=== PATIENT | male | born 1955 | race African-American/Black ===

== ENCOUNTER 2018-12-19 10:31 | Inpatient (IN) | payer OTHER ==
--- NOTE | 2018-12-19 11:45 | PDOC ---
History of Present Illness <Wendy Garcia - Last Filed: 12/19/18 14:17> - General History Source: Patient Exam Limitations: No Limitations - History of Present Illness Initial Comments: 12/19/18 11:40 63-year-old male with history of diabetes on metformin presents with 3 weeks of intermittent headaches and 4 days of imbalance with discoordination of the left hand. Patient without history of recurring headaches, around 3 weeks ago started noticing left temporal headache varying in severity, sometimes sharp and radiating about the occiput. Slight nausea when headache is most prominent, particularly in the morning. The headache is slightly exacerbated by positional changes such as bending down. No actual vomiting, no acute vision changes though he was diagnosed with glaucoma by an service department manager in the past, no speech issues. In the setting, beginning about 4-5 days ago the patient began noting some imbalance with walking and discoordination of his left hand described as missing objects and dropping them. He is right-hand dominant, no issues of the right side or the left leg. No recent head injury, no smoking/ drinking/abuse, no history of cardiac/stroke/cancer issues. Presents today secondary to persistent symptoms. <Owen Mancia - Last Filed: 12/20/18 15:38> - General Chief Complaint: CVA/TIA Stated Complaint: HEADACHE, UNBALANCE Time Seen by Provider: 12/19/18 11:20 NIH Stroke Scale - Last Known Well Date/Time & Onset Date Last Known Well: 12/15/18 (unclear time) - Initial Evaluation Level of consciousness: Alert Ask patient the month and their age: Answers both correctly Ask patient to open & close eyes; make fist and let go: Obeys both correctly Best gaze (horizontal eye movement): Normal Visual field testing: No visual field loss Facial paresis (Show teeth/raise eyebrows/close eyes tight): Normal symmetrical movement Motor Function: Left Arm: Drift Motor Function: Right Arm: Normal (extends arm 90 (or 45) degrees for 10 seconds without drift Motor Function: Left Leg: Normal (extends leg 30 degrees for 5 seconds without drift) Motor Function: Right Leg: Normal (extends leg 30 degrees for 5 seconds without drift) Limb Ataxia: Present in one limb Sensory(Use pinprick test arms,legs,trunk,face/side to side): Normal Best language (Describe picture, name items, read sentences): No Aphasia Dysarthria (read several words): Normal articulation Extinction and Inattention: No abnormality - Total Score NIH Stroke Scale Score: 2 <DylanKenji coronadofaele - Last Filed: 12/20/18 15:38> Past History <Kjpedro luisWendy - Last Filed: 12/19/18 14:17> - Past Medical History COPD: No Diabetes: Yes GI Disorders: Yes (acid reflux) - Suicide/Smoking/Psychosocial Hx Smoking Status: No Smoking History: Never smoked Have you smoked in the past 12 months: No Number of Cigarettes Smoked Daily: 0 Hx Alcohol Use: No Drug/Substance Use Hx: No <DylanivonneOwen - Last Filed: 12/20/18 15:38> - Past Medical History Allergies/Adverse Reactions: Allergies Allergy/AdvReac Type Severity Reaction Status Date / Time naproxen Allergy Verified 12/19/18 10:34 Home Medications: Ambulatory Orders Bimatoprost [Lumigan] 1 drop OU DAILY 12/19/18 Metformin HCl [Glucophage] 1,000 mg PO BID 12/19/18 Review of Systems - Review of Systems Constitutional: No: Chills, Fever, Night Sweats, Unintentional Wgt. Loss HEENTM: No: Recent change in vision, Throat Pain Respiratory: No: Cough, Shortness of Breath Cardiac (ROS): No: Chest Pain, Edema, Palpitations, Syncope ABD/GI: Yes: Nausea. No: Diarrhea, Vomiting Musculoskeletal: No: Joint Pain, Muscle Pain Neurological: Yes: Headache, Weakness. No: Paresthesia All Other Systems: Reviewed and Negative <Owen Mancia - Last Filed: 12/20/18 15:38> *Physical Exam - Vital Signs Last Vital Signs Temp Pulse Resp BP Pulse Ox 99.4 F 84 18 137/65 99 12/19/18 10:34 12/19/18 10:34 12/19/18 10:34 12/19/18 10:34 12/19/18 10:34 <Wendy Garcia - Last Filed: 12/19/18 14:17> - Vital Signs Last Vital Signs Temp Pulse Resp BP Pulse Ox 99.4 F 84 18 137/65 99 12/19/18 10:34 12/19/18 10:34 12/19/18 10:34 12/19/18 10:34 12/19/18 10:34 - Physical Exam Comments: 12/19/18 11:45 Vital signs within normal limits, temp 99.4. GENERAL: The patient is awake, alert, and fully oriented, in no acute distress. HEAD: Normal with no signs of trauma. EYES: PERRL, EOMI, sclera anicteric, early glaucoma L>R, conjunctiva clear with no pallor. ENT: oropharynx clear without exudates. Moist mucous membranes. NECK: Normal range of motion, supple without lymphadenopathy, JVD, or masses. LUNGS: Breath sounds equal, clear to auscultation bilaterally. No wheeze/ crackles. HEART: Regular rate and rhythm, normal S1 and S2 without murmur or rub. ABDOMEN: Soft/nontender/nondistended. BS wnl. No guarding or rebound. No palpable masses. No hepatosplenomegaly. EXTREMITIES: Normal range of motion, no edema. 2+ distal pulses. No cords, erythema, or tenderness. NEUROLOGICAL: Mental status: The patient is alert and oriented x3. Cranial nerves: Cranial nerves II through XII are intact Motor: Right upper extremity 5/5, LUE without drift but with 4/5 L elbow/hand and slight discoordination on STEPHY and FNF. The lower extremities are 5 over 5 in all muscle groups. No pronator drift. Sensation: Sensation is intact to light touch throughout. Cerebellar: [id number] is abnormal in LUE. Utjh-dyil-qvwv is normal in both lower extremities. Gait: Normal though sense of imbalance with standing. Heel and toe walking are normal. Tandem gait is normal. PSYCH: Normal mood, normal affect. SKIN: Warm, Dry, no rashes or lesions noted. <Owen Mancia - Last Filed: 12/20/18 15:38> Moderate Sedation - Procedure Monitoring Vital Signs: Procedure Monitoring Vital Signs Temperature 99.4 F 12/19/18 10:34 Pulse Rate 84 12/19/18 10:34 Respiratory Rate 18 12/19/18 10:34 Blood Pressure 137/65 12/19/18 10:34 O2 Sat by Pulse Oximetry (%) 99 12/19/18 10:34 <Wendy Garcia - Last Filed: 12/19/18 14:17> - Procedure Monitoring Vital Signs: Procedure Monitoring Vital Signs Temperature 99.4 F 12/19/18 10:34 Pulse Rate 84 12/19/18 10:34 Respiratory Rate 18 12/19/18 10:34 Blood Pressure 137/65 12/19/18 10:34 O2 Sat by Pulse Oximetry (%) 99 12/19/18 10:34 <Owen Mancia - Last Filed: 12/20/18 15:38> Heart Score/ECG Review #1 ECG reviewed & interpreted by me at: 13:25 General ECG Interpretation: Sinus Rhythm, Normal Rate (64), Normal Intervals ( qtc 373), No acute ischemic changes <Owen Mancia - Last Filed: 12/20/18 15:38> ED Treatment Course - LABORATORY CBC & Chemistry Diagram: 12/19/18 13:15 12/19/18 13:15 - ADDITIONAL ORDERS Additional order review: Laboratory Results 12/19/18 13:15 PT with INR 13.20 H INR 1.12 H 12/19/18 13:15 RBC 4.35 MCV 88.3 MCHC 33.9 RDW 12.7 MPV 8.9 Neutrophils % 59.6 D Lymphocytes % 30.8 D Monocytes % 7.3 Eosinophils % 1.0 Basophils % 1.3 <Wendy Garcia - Last Filed: 12/19/18 14:17> - LABORATORY CBC & Chemistry Diagram: 12/20/18 05:30 12/20/18 05:30 - RADIOLOGY Radiology Studies Ordered: Category Date Time Status HEAD CT (STROKE) [CT] Stat CT Scan 12/19/18 11:38 Ordered CHEST PA & LAT [RAD] Stat Radiology 12/19/18 11:38 Ordered <Owen Mancia - Last Filed: 12/20/18 15:38> Medical Decision Making - Medical Decision Making Case discussed with Dr. Stephen Pastrana at 14:16. Case discussed with Dr. Forman at 14:18. <Wendy Garcia - Last Filed: 12/19/18 14:17> - Medical Decision Making 12/19/18 11:51 63-year-old male with history of diabetes presents with 3 weeks of new onset headaches and 4-5 days of left upper extremity weakness and ataxia. Findings on exam localized left upper extremity, otherwise neurovascularly intact. Question CVA/TIA that occurred 4-5 days ago, rule out space-occupying lesion given the new onset headaches. Stroke protocol initiated Will discuss with neurology Will likely need admission 12/19/18 14:20 CT shows right frontal parietal subdural hematoma with 5 mm midline shift, acute on chronic. CBC and coags are within normal limits. Reaffirmed again with patient, no recent trauma and not on any blood thinners. Discussed with Dr. Pastrana of neurosurgery, likely plan for OR later today. Pre-op and T+S done. Accepted for inpt m/s by Dr. Forman <Owen Mancia - Last Filed: 12/20/18 15:38> *DC/Admit/Observation/Transfer - Attestations Scribe Attestion: Documentation prepared by Wendy Garcia, acting as medical center representative for Owen Mancia MD. <Wendy Garcia - Last Filed: 12/19/18 14:17> - Discharge Dispostion Decision to Admit order: Yes <Owen Mancia - Last Filed: 12/20/18 15:38> Diagnosis at time of Disposition: Weakness of left upper extremity, Subdural hematoma - Discharge Dispostion Condition at time of disposition: Fair
[2018-12-19 14:00] LABS: BASO % 1.3 % (0-2.0); HEMATOCRIT 38.4 % (35.4-49); LYMPH % 30.8 % (8-40); MCH 29.9 pg (25.7-33.7); MCHC 33.9 g/dl (32.0-35.9); MEAN CELL VOLUME 88.3 fl (80-96); MEAN PLT VOLUME 8.9 fl (7.5-11.1); MONO % 7.3 % (3.8-10.2); NEUT % 59.6 % (42.8-82.8); PLATELET COUNT 285 K/MM3 (134-434); RBC 4.35 M/mm3 (4.00-5.60); RDW 12.7 % (11.9-15.9); WHITE BLOOD COUNT 6.3 K/mm3 (4.0-10.0)
[2018-12-19 14:14] LABS: INR 1.12 (0.83-1.09); PROTHROMBIN TIME (PATIENT) 13.2 SEC (9.7-13.0)
[2018-12-19 14:25] LABS: ALBUMIN 3.5 g/dl (3.4-5.0); ALK PHOS 128 U/L (45-117); ANION GAP 5 MMOL/L (8-16); BILIRUBIN,TOTAL 0.9 mg/dL (0.2-1); BLOOD UREA NITROGEN 11 mg/dL (7-18); CALCIUM 9.2 mg/dL (8.5-10.1); CHLORIDE 103 mmol/L (98-107); CHOLESTEROL 199 mg/dL (50-200); CO2 33 mmol/L (21-32); CREATININE 1.1 mg/dL (0.55-1.3); GLUCOSE,RANDOM 242 mg/dL (74-106); HDL CHOLESTEROL 82 mg/dL (40-60); SGOT/AST 23 U/L (15-37); SGPT/ALT 36 U/L (13-61); SODIUM 141 mmol/L (136-145); TOT PROT 6.8 g/dl (6.4-8.2); TRIGLYCERIDES 92 mg/dL (0-150)
--- NOTE | 2018-12-19 14:28 | PN ---
Progress Note (short form) - Note Progress Note: NEUROSURGERY CONSULT DICTATED Care d/w Dr of ED Family at bedside R temporo-occipital H/A and L hemiparesis of at least 4 days duration No recent fall/trauma Not on AC PE: AF, VSS HEENT- NC/AT; Neck- supple; Cor- RR; Lungs- CTA B; Abd- benign; Ext- no sign of DVT A/A/OX3; speech fluent CN- intact; Motor- L hand 4-, L UE drift; Sensation- intact LT; DTR- 1+ Labs reviewed and acceptable- platelet 285k, INR 1.[address]- moderate to large 2+ cm R fronto-parietal > temporal subacute/chronic SDH with possible membrane and cortical/ventricular mass effect Symptomatic R SDH- for craniotomy for drainage and subdural drain placement Risks: bleeding, infection, bleed, re-hemorrhage, stroke, sz, coma, , DVT/ PE, WA, pneumonia Operative and postop care discussed Adán for sz prophylaxis NPO D/w OR team T & X 2 PRBC
[2018-12-19] MEDS ORDERED: MIDAZOLAM HCL 2 MG/2 ML SINGLE DOSE VIAL ONE (15:05)
[2018-12-19] MEDS ORDERED: ROCURONIUM BROMIDE 50 MG/5 ML VIAL ONE ×3 (15:06→16:29)
[2018-12-19] MEDS ORDERED: LIDOCAINE HCL/PF 2% SDV 5ML VIAL ONE (15:06)
[2018-12-19] MEDS ORDERED: THROMBIN (BOVINE) 5,000 UNIT VIAL TP ONE (15:34)
[2018-12-19] MEDS ORDERED: SUCCINYLCHOLINE CHLORIDE 200 MG/10 ML VIAL ONE (16:23)
[2018-12-19] MEDS ORDERED: PROPOFOL 20 ML ONE ×5 (16:23→17:21)
[2018-12-19] MEDS ORDERED: fentaNYL CITRATE 250 MCG/5 ML VIAL ONE (16:29)
[2018-12-19] MEDS ORDERED: PHENYLEPHRINE HCL 10 MG/1 ML SINGLE DOSE VIAL ONE (16:31)
--- NOTE | 2018-12-19 16:39 | HP ---
Admitting History and Physical - Primary Care Physician PCP: Janneth Forman - Admission History of Present Illness: 63-year-old male with history of diabetes on metformin presents with 3 weeks of intermittent headaches and 4 days of imbalance with discoordination of the left hand. Patient without history of recurring headaches, around 3 weeks ago started noticing left temporal headache varying in severity, sometimes sharp and radiating about the occiput. Slight nausea when headache is most prominent, particularly in the morning. The headache is slightly exacerbated by positional changes such as bending down. 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 In the setting, beginning about 4-5 days ago the patient began noting some imbalance with walking and discoordination of his left hand described as missing objects and dropping them. He is right-hand dominant, no issues of the right side or the left leg. No recent head injury, no smoking/ drinking/abuse, no history of cardiac/stroke/cancer issues. Presents today secondary to persistent symptoms. - Past Medical History Endocrine: Yes: Diabetes Mellitus - Smoking History Smoking history: Never smoked Have you smoked in the past 12 months: No Aproximately how many cigarettes per day: 0 - Alcohol/Substance Use Hx Alcohol Use: No Home Medications - Allergies Allergies/Adverse Reactions: Allergies Allergy/AdvReac Type Severity Reaction Status Date / Time naproxen Allergy Verified 12/19/18 10:34 - Home Medications Home Medications: Ambulatory Orders Bimatoprost [Lumigan] 1 drop OU DAILY 12/19/18 Metformin HCl [Glucophage] 1,000 mg PO BID 12/19/18 Physical Examination Vital Signs: Vital Signs Temperature 98.0 F 12/19/18 16:03 Pulse Rate 78 12/19/18 16:03 Respiratory Rate 18 12/19/18 16:03 Blood Pressure 155/86 12/19/18 16:03 O2 Sat by Pulse Oximetry (%) 97 12/19/18 16:03 Constitutional: Yes: Calm HENT: Yes: Atraumatic, Other Neck: Yes: Supple Cardiovascular: Yes: Regular Rate and Rhythm Respiratory: Yes: CTA Bilaterally Gastrointestinal: Yes: Normal Bowel Sounds Extremities: Yes: WNL Edema: No Peripheral Pulses WNL: Yes Neurological: Yes: Other (drowsy...in recovery room) Labs: CBC, BMP 12/19/18 13:15 12/19/18 13:15 Imaging - Results Cat Scan: Report Reviewed Problem List - Problems (1) Subdural hematoma Assessment/Plan: patient for OR with dr Pastrana for evacuation of hematoma Code(s): S06.5X9A - TRAUM SUBDR HEM W LOC OF UNSP DURATION, INIT (2) Weakness of left upper extremity Assessment/Plan: left arm weak... Code(s): R29.898 - OTH SYMPTOMS AND SIGNS INVOLVING THE MUSCULOSKELETAL SYSTEM Assessment/Plan Laboratory Tests 12/19/18 12/19/18 12/19/18 13:15 13:15 13:15 WBC 6.3 RBC 4.35 Hgb 13.0 Hct 38.4 MCV 88.3 MCH 29.9 MCHC 33.9 RDW 12.7 Plt Count 285 D MPV 8.9 Absolute Neuts (auto) 3.7 Neutrophils % 59.6 D Lymphocytes % 30.8 D Monocytes % 7.3 Eosinophils % 1.0 Basophils % 1.3 Nucleated RBC % 0 PT with INR 13.20 H INR 1.12 H Sodium 141 Potassium 4.0 Chloride 103 Carbon Dioxide 33 H Anion Gap 5 L BUN 11 Creatinine 1.1 Creat Clearance w eGFR > 60 Random Glucose 242 H Calcium 9.2 Total Bilirubin 0.9 AST 23 ALT 36 Alkaline Phosphatase 128 H Creatine Kinase 61 Troponin I < 0.02 Total Protein 6.8 Albumin 3.5 Triglycerides 92 Cholesterol 199 Total LDL Cholesterol 94 HDL Cholesterol 82 H Blood Type Antibody Screen 12/19/18 13:15 WBC RBC Hgb Hct MCV MCH MCHC RDW Plt Count MPV Absolute Neuts (auto) Neutrophils % Lymphocytes % Monocytes % Eosinophils % Basophils % Nucleated RBC % PT with INR INR Sodium Potassium Chloride Carbon Dioxide Anion Gap BUN Creatinine Creat Clearance w eGFR Random Glucose Calcium Total Bilirubin AST ALT Alkaline Phosphatase Creatine Kinase Troponin I Total Protein Albumin Triglycerides Cholesterol Total LDL Cholesterol HDL Cholesterol Blood Type A POSITIVE Antibody Screen Negative Active Medications Generic Name Dose Route Start Last Admin Trade Name Freq PRN Reason Stop Dose Admin Acetaminophen/Codeine Phosphate 1 tab 12/19/18 19:01 12/20/18 01:35 Tylenol # 3 - PO 1 tab Q4H PRN Administration PAIN LEVEL 4 - 6 Docusate Sodium 100 mg 12/19/18 22:00 12/20/18 15:00 Colace - PO 100 mg TID DELISA Administration Fentanyl 50 mcg 12/19/18 19:47 Sublimaze Injection - IVPUSH Q5M PRN PAIN-PACU ORDER X 4 DOSES ONLY Cefazolin Sodium 1 gm in 50 mls @ 100 mls/hr 12/19/18 21:00 12/20/18 16:00 Ancef 1 Gm Premixed Ivpb - IVPB 12/20/18 20:59 100 mls/hr Q6H-IV DELISA Administration Insulin Aspart 1 vial 12/19/18 22:00 12/20/18 17:46 Novolog Vial Sliding Scale - SQ 2 units ACHS DELISA Administration Protocol Levetiracetam 500 mg 12/19/18 22:00 12/20/18 09:23 Keppra Injection - IVPB 500 mg BID DELISA Administration Morphine Sulfate 2 mg 12/20/18 01:49 Morphine Sulfate IVPUSH Q3H PRN PAIN LEVEL 7 - 10 Ondansetron HCl 4 mg 12/19/18 19:47 Zofran Injection IVPUSH Q6H PRN NAUSEA AND/OR VOMITING Pantoprazole Sodium 40 mg 12/20/18 10:00 12/20/18 09:23 Protonix Iv IVPUSH 40 mg DAILY DELISA Administration cc time 60 min
[2018-12-19] MEDS ORDERED: SODIUM CHLORIDE 1,000 ML IV SCH (16:45)
[2018-12-19] MEDS ORDERED: ceFAZolin SODIUM 1 GM VIAL IVPB ONE (16:55)
[2018-12-19] MEDS ORDERED: ceFAZolin SODIUM 1 GM VIAL ONE (17:18)
[2018-12-19] MEDS ORDERED: ePHEDrine SULFATE 50 MG/1 ML AMPULE ONE (17:33)
[2018-12-19] MEDS ORDERED: LIDOCAINE 1%/EPI 1:100000 (20 ML MULTI DOSE VIAL) IJ ONE (17:34)
[2018-12-19] MEDS ORDERED: NEOSTIGMINE METHYLSULFATE 0.5 MG/ML - 10 ML MDV ONE (17:47)
[2018-12-19] MEDS ORDERED: DEXAMETHASONE SOD PHOSPHATE 4 MG/1 ML VIAL ONE ×2 (17:47)
[2018-12-19] MEDS ORDERED: GLYCOPYRROLATE 0.2 MG/1 ML VIAL ONE (17:53)
--- NOTE | 2018-12-19 18:32 | CONS ---
DATE OF CONSULTATION: 12/19/2018 REFERRING PHYSICIAN: Owen Mancia M.D. CONSULTING PHYSICIAN: Stephen Dia M.D. CHIEF COMPLAINT: Headache with left hemiparesis. HISTORY OF PRESENT ILLNESS: The patient is a 63-year-old right-handed male with a history of diabetes, oral hypoglycemic, who complains of approximately 4-day history of relatively sudden onset of left-hand weakness and paresthesia. He has difficulty with lifting up his hands and grasping things. He also had been having a headache for several days. He stated that he might have fallen and hit his face last summer. He denies loss of consciousness at the time. There is no associated nausea, vomiting, or seizure activity. There is no diplopia. He has no dizziness. His pain is predominantly on the right side in temporal and occipital region. PAST MEDICAL HISTORY: Significant for noninsulin dependent diabetes. MEDICATION: Oral hypoglycemic. ALLERGIES: none. SOCIAL HISTORY: Does not smoke or drink. 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 FAMILY HISTORY: Noncontributory. REVIEW OF SYSTEMS: Otherwise negative for other major constitutional, head/neck , cardiovascular, pulmonary, gastrointestinal, genitourinary, endocrinologic, neurologic, or psychological problems except for the above. PHYSICAL EXAMINATION: Vital signs: Temperature is 99.4, blood pressure 137/65 with pulse rate 84, O2 saturation is 99% on room air. HEENT: Normocephalic, atraumatic, anicteric. Neck: Supple with no carotid bruit. Coronary: Regular rhythm. Lungs: Clear bilaterally. Abdomen: Benign. Extremities: No signs of DVT. Neurologic: He is awake, alert, oriented x4. He is sitting up in the stretcher. Cranial nerves examination intact 2-12. Motor examination shows 5/5 strength except left hand, which is 4-. Sensory, he had drift of the left upper extremity. Sensory examination is intact to light touch. Deep tendon reflexes are 1+ throughout. There is no pathological long tract sign. Gait is not tested for safety reasons. Cerebellar examination demonstrated intact finger to nose examination. LABORATORY EXAMINATION: White blood cell count 6.3, hemoglobin 13, platelet count 285,000. INR is 1.12. Serum sodium is 141, potassium 4.0, BUN and creatinine are 11 and 1.1, respectively. Glucose is 242. LFTs are normal except for mildly elevated alkaline phosphatase of 128. Albumin is 3.5. CT scan of the head demonstrated a moderate to large sized septated right front parietal compacted subdural hematoma going less so into the superior temporal region. There is also a small amount of acute blood which is approximately 2 cm in thickness. There is compression of cortex and slight midline shift from right to left of around 5 mm. There is also compression of lateral ventricle on the right. There is a question of a linear lucency within the right temporal bone which could have been the prior fracture which is chronic in nature versus a vascular groove. IMPRESSION: 1. Subacute/chronic right frontal parietal subdural hematoma with mass effect. 2. Diabetes. RECOMMENDATION: The patient presents with several day history including headache and left hemiparesis. CT scan demonstrates the corresponding right frontal parietal subdural hematoma with mass effect and shift. Because of the mass effect and neurological symptoms, he is a candidate for a craniotomy for evacuating subdural hematoma. The patient understands indications for procedure, procedure in detail, risks and benefits and alternatives for treatments and cranial condition and wished to proceed with surgery. No guarantee can be given for a favorable outcome, and he understands that. He is at increased risk for infection as well as postoperative seizure. The pros and cons of treatment approach were discussed and patient expressed an understanding. His family was at the bedside in the emergency room. All questions were answered. The operative and postoperative care were described in detail. The patient understands that he has the risk of developing re- hemorrhage, especially if there is presence of subdural membrane. He is to avoid any anticoagulant or antiinflammatory medications for at least 1 week prior to surgery. The surgical consent was obtained in the emergency room for the patient. STEPHEN DIA M.D. [id number] MTDD
[2018-12-19] MEDS ORDERED: levETIRAcetam 500 MG/5 ML INJECTION VIAL IVPB ONE (19:00)
[2018-12-19] MEDS ORDERED: ONDANSETRON 4 MG/2 ML VIAL IVPUSH PRN ×2 (19:01→19:47)
[2018-12-19] MEDS ORDERED: ACETAMINOPHEN WITH CODEINE 300MG/30MG TABLET PO PRN (19:01)
--- NOTE | 2018-12-19 19:01 | OP ---
Operative Note - Note: Operative Date: 12/19/18 Pre-Operative Diagnosis: Large R parietal acute on chronic SDH with mass effect and midline shift Operation: R parietal craniotomy for SDH, drain placement, microdissection Findings: subdural membrane; both acute and chronic blood under pressure Implants: cranial plates x4 with 1.5x5 mm screws x8 Post-Operative Diagnosis: Same as Pre-op Surgeon: Stephen Pastrana Linux Support Engineer: Leonardo Sanchez Anesthesiologist/BUTTER MAKER: Adrianna Saavedra Anesthesia: General Specimens Removed: SDH for path and cytology, culture; subdural membrane Estimated Blood Loss (mls): 100 Drains, Volume Out (mls): 5
[2018-12-19] MEDS ORDERED: MORPHINE SULFATE 2 MG/ML VIAL IVPUSH PRN (19:06)
--- NOTE | 2018-12-19 19:31 | SURG ---
Surgery Health Actuary Note Health Actuary: Leonardo Sanchez PA-C Date of Service: 12/19/18 Diagnosis: Large R parietal acute on chronic SDH with mass effect and midline shift Procedure: Rt parietal craniotomy for SDH, drain placement, microdissection I was present for the entirety of the operative procedure. For further detail, please refer to operative report. Visit type - Case Type Case Type: ED Admission - Emergency Emergency Visit: Yes ED Registration Date: 12/19/18 Care time: The patient presented to the Emergency Department on the above date and was hospitalized for further evaluation of their emergent condition. - New patient This patient is new to me today: Yes Date on this admission: 12/19/18
[2018-12-19] MEDS ORDERED: LACTATED RINGERS SOLUTION 1,000 ML IV SCH (20:00)
[2018-12-19] MEDS: INSULIN SLIDING SCALE (NOVOLOG) 1 VIAL SQ SCH ×2 (20:15→22:14)
[2018-12-19 20:40] LABS: HEMATOCRIT 35.8 % (35.4-49); HEMOGLOBIN 12.2 GM/dL (11.7-16.9); MCH 29.9 pg (25.7-33.7); MEAN PLT VOLUME 9.2 fl (7.5-11.1); PLATELET COUNT 252 K/MM3 (134-434); RBC 4.06 M/mm3 (4.00-5.60); RDW 12.7 % (11.9-15.9); WHITE BLOOD COUNT 7.2 K/mm3 (4.0-10.0)
[2018-12-19 20:51] LABS: ALK PHOS 110 U/L (45-117); ANION GAP 9 MMOL/L (8-16); BILIRUBIN,TOTAL 0.7 mg/dL (0.2-1); BLOOD UREA NITROGEN 9 mg/dL (7-18); CALCIUM 8.3 mg/dL (8.5-10.1); CHLORIDE 107 mmol/L (98-107); CO2 27 mmol/L (21-32); GLUCOSE,RANDOM 204 mg/dL (74-106); POTASSIUM 3.8 mmol/L (3.5-5.1); SGOT/AST 18 U/L (15-37); SGPT/ALT 29 U/L (13-61); SODIUM 143 mmol/L (136-145)
[2018-12-19] MEDS: D5-NS + 20 MEQ KCL - 20 MEQ/1,000 ML INFUS.BAG IV SCH ×2 (21:04→21:18)
--- NOTE | 2018-12-19 21:11 | CONSULT ---
Consult Consult Specialty:: ICU Reason for Consultation:: hemorragic stroke, ICU level of care - History of Present Illness Chief Complaint: headache History of Present Illness: 63 yr old man with DM presented with progressiving headache for past 3 weeks with dysmetria of the left hand and gait imbalance. headache was worse with movement and leaning forward. He was found to have right frontal parietal subdural hematoma with 5 mm midline shift, acute on chronic. s/p microdissection , right parietal cranietomy for SDH with drain placement, POD#0. 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 Gastrointestinal: Yes: GERD Rheumatology: Yes: Gout Endocrine: Yes: Diabetes Mellitus - Alcohol/Substance Use Hx Alcohol Use: No - Smoking History Smoking history: Never smoked Have you smoked in the past 12 months: No Aproximately how many cigarettes per day: 0 Home Medications - Allergies Allergies/Adverse Reactions: Allergies Allergy/AdvReac Type Severity Reaction Status Date / Time naproxen Allergy Verified 12/19/18 10:34 - Home Medications Home Medications: Ambulatory Orders Bimatoprost [Lumigan] 1 drop OU DAILY 12/19/18 Metformin HCl [Glucophage] 1,000 mg PO BID 12/19/18 Home Medications (free text): confirmed with [facility]: lumigan 0.1% b/l 1 drop at HS , metoformin 1G bid, lotamax gel eye gel b/l QID(however lotamax has not been filled recently) Review of Systems - Review of Systems Constitutional: reports: No Symptoms. denies: Fever, Lethargy, Loss of Appetite Eyes: reports: No Symptoms HENT: denies: Difficult Swallowing Neck: reports: No Symptoms Cardiovascular: reports: No Symptoms Respiratory: reports: No Symptoms Gastrointestinal: reports: No Symptoms Genitourinary: reports: No Symptoms Musculoskeletal: reports: No Symptoms Integumentary: reports: No Symptoms Neurological: reports: Headache, Unsteady Gait Endocrine: reports: No Symptoms Hematology/Lymphatic: reports: No Symptoms Psychiatric: reports: No Symptoms Physical Exam Vital Signs: Vital Signs Temperature 98.0 F 12/19/18 16:03 Pulse Rate 78 12/19/18 16:03 Respiratory Rate 18 12/19/18 16:03 Blood Pressure 155/86 12/19/18 16:03 O2 Sat by Pulse Oximetry (%) 97 12/19/18 16:03 Constitutional: Yes: No Distress, Calm Eyes: Yes: Conjunctiva Clear, EOM Intact, PERRL HENT: Yes: Atraumatic, Normocephalic. No: Pharyngeal Erythema, Thrush, Tonsillar Exudate Neck: Yes: Supple, Trachea Midline. No: Lymphadenopathy, Thyromegaly Cardiovascular: Yes: Regular Rate and Rhythm, S1, S2. No: Murmur Respiratory: Yes: Regular, CTA Bilaterally (anterior auscultation) Gastrointestinal: Yes: Normal Bowel Sounds, Soft. No: Distention Extremities: Yes: WNL Edema: No Peripheral Pulses WNL: Yes Integumentary: Yes: WNL Wound/Incision: Yes: Clean/Dry (head dressing CDI, with drain in place with serosangunious fluid) Neurological: Yes: Alert, Oriented, Cran Nerves II-XII Intact, Other (bicep and knee reflex intact). No: Lethargy, Loss of Sensation, Numbness, Tingling, Tremors ...Motor Strength: WNL (5/5 handgrip, shoulder shrug, extension and flexion biceps, tricpes, hip, knee, ankle) Psychiatric: Yes: Alert, Oriented (to person, place, month, day, date, year, president, -3 serial substraction from 100 upto 91, 1/3 short term memory recall in 5mins) Labs: CBC, BMP 12/19/18 19:40 12/19/18 19:40 Assessment/Plan 63 yr old man with DM, presented with SDH with midline shift s/p cranietomy. - pt was unable to recall his home medications; called the pharmacy to confirm, list updated in EMR Neurological - SDH [address] ok for systolic BP to be upto 160's, discussed with Dr. Pastrana neuro checks Q1h stroke order set initiated, HOB 30deg, toby scale at DC, PT eval, speech and swallow eval keppra for seizure prophylaxis Cardiovascular no BP meds, address if systolic >160 Infectious disease - cultures sent from OR Endocrine - DM - NPO, BGM and NISS ACHS - home metformin as inpt, can reinitiate at DC Fluids, electrolytes, nutrition - D5 with KCL @80cc/hr - NPO until speech and swallow, pt did well with bedside evaluation Prophylaxis - SCD's for VTE, no medical AC due to hemorrhage - protonix and senna for GI prophylaxis - anti-emetics for nausea - pain control
[2018-12-19] MEDS: DOCUSATE SODIUM 100 MG CAPSULE (FP) PO SCH (21:24)
[2018-12-19] MEDS: levETIRAcetam 500 MG/5 ML INJECTION VIAL IVPB SCH (21:54)
[2018-12-19] MEDS: CEFAZOLIN 1 GM/D5W 1 GM/50 ML BAG IVPB SCH (21:55)
--- NOTE | 2018-12-20 00:09 | PN ---
Progress Note (short form) - Note Progress Note: NEUROSURGERY Pt seen previously in PACU PE: AF, VSS HEENT- Dressing intact; Neck- supple; Cor- RR; Lungs- CTA B; Abd- benign; Ext- no sign of DVT Drain- 5cc A/A; speech fluent CN- intact; Motor- L hand 4+ (improved), L UE drift; Sensation- intact LT; DTR- 1+ Labs reviewed - OK except hyperglycemia On sliding scale Symptomatic R SDH s/p R craniotomy for drainage and subdural drain placement Keppra for sz prophylaxis Repeat head CT in AM If minimal drainage from subdural drain could remove drain tomorrow
[2018-12-20] MEDS ORDERED: MORPHINE SULFATE 2 MG/ML VIAL IVPUSH PRN (01:49)
[2018-12-20 02:39] LABS: URINE APPEARANCE CLEAR; URINE BILIRUBIN NEGATIVE (<2.0 mg/dL); URINE COLOR STRAW; URINE GLUCOSE (UA) 3+ (NEGATIVE); URINE KETONE NEGATIVE (NEGATIVE); URINE LEUK ESTERASE NEGATIVE (NEGATIVE); URINE NITRITE NEGATIVE (NEGATIVE); URINE PROTEIN NEGATIVE (NEGATIVE); URINE UROBILINOGEN NEGATIVE mg/dL (0.2-1.0)
[2018-12-20] MEDS: CEFAZOLIN 1 GM/D5W 1 GM/50 ML BAG IVPB SCH ×3 (03:09→16:00)
[2018-12-20] MEDS: INSULIN SLIDING SCALE (NOVOLOG) 1 VIAL SQ SCH ×4 (06:04→21:27)
[2018-12-20] MEDS: DOCUSATE SODIUM 100 MG CAPSULE (FP) PO SCH ×3 (06:05→21:26)
--- NOTE | 2018-12-20 06:20 | OP ---
DATE OF OPERATION: 12/19/2018 PREOPERATIVE DIAGNOSES: 1. Ebqgk-gq-jizepir right parietal subdural hematoma with mass effect and midline shift. 2. Diabetes. POSTOPERATIVE DIAGNOSES: 1. Dummq-ul-rvkwagc right parietal subdural hematoma with mass effect and midline shift. 2. Diabetes. ATTENDING SURGEON: Stephen Pastrana MD MEDICAL EDUCATION MANAGER: Leonardo Sanchez PA-C ANESTHESIA: General endotracheal. ANESTHESIOLOGIST: Adrianna Saavedra MD ESTIMATED BLOOD LOSS: 100 mL PROCEDURE: 1. Right parietal craniotomy for evacuation of subdural hematoma including subdural drain placement (40071). 2. Microsurgical dissection with the operative microscope and microsurgical techniques (08499). FINDINGS: 1. Ehfwv-lb-gzioapy subdural hematoma. 2. Thick subdural membrane. 3. Cortical mass effect. 4. A combination of mostly subdural, but a small amount of subarachnoid blood. INDICATION: The patient is a 63-year-old right-handed male with a history of increasing headache over the past 4-5 days. He stated that he had fallen, hit his face last summer and had some headache back then. His left upper extremity function deteriorated in the last 3-4 days, and he may have some occasional ataxia as well. He has severe headache on the right side in temporal and occipital regions. CT scan demonstrated a large right parietal, right subdural hematoma with mass effect and midline shift. Maximal thickness was approximately 2 cm, and midline shift was about 5 mm. Because of the corresponding CT finding with his neurological symptomatology, he was consented for emergency right craniotomy for evaluation of subdural hematoma. Risks of procedure include, but are not limited to, bleeding, infection, stroke, seizure, coma, , pneumonia, DVT/PE, MT, and other risks of general anesthesia. There is also increased risk of infection because of his diabetes. There also exists a chance of re-hemorrhage because of the presence of a membrane. The patient understands the indication for the procedure, procedure in detail, risks and benefits, and alternatives for the treatment of his cranial condition and wished to proceed with surgery. No guarantee was given for a favorable outcome. PROCEDURE IN DETAIL: The patient was taken to the operating room. He was placed in supine position. After general anesthesia was induced and appropriate lines were placed, the head was turned to the left on a Bowman horseshoe. A chest roll was placed on the right. The patient was partially rotated to the left. Right arm was tucked, and left arm was left out on an armrest. Right parietal region was cleaned with alcohol and then was clipped. A horseshoe-shaped incision was made, hinged laterally, its center near the right parietal boss, approximately 1 cm above the superior temporal line. Skin was infiltrated with 10 mL of 1% Xylocaine with epinephrine. After the patient was sterilely prepped and draped, the scalp incision was opened with a No. 10 blade. Yadira clips were applied. Subperiosteal dissection was carried out with periosteal elevator. Fishhooks were used to secure the scalp flap. A single bob hole was made anteriorly with high-speed pneumatic drill. Underlying dura was dissected free. A craniotome was used to cut a circular craniotomy bone flap approximately 7-8 cm in diameter. The underlying dura appeared discolored and was brownish in nature consistent with underlying blood. Epidural hemostasis was obtained with thrombin-filled powder Gelfoam. A microscope was brought in the wound for both illumination and magnification. Microsurgical techniques were to be utilized. The dura was opened, hinged laterally. A very thick subdural membrane was encountered. This was from the dura. The subdural membrane was then cut with Metzenbaum scissors and sent for pathological analysis. After the subdural membrane was cut, the underlying chronic subdural fluid came out under high pressure. It was sent for both cytology, Gram stain and culture. There was also an element of acute subdural hematoma in the subdural space. This was sent for pathological analysis as well. The edges of the subdural membrane were coagulated with bipolar electrocautery. The subdural space was irrigated with plain saline. The dural edges were coagulated where necessary. There was no active bleeding at the time of the dural closure. The microscope was used to inspect all 4 quadrants of the exposure. At this point, the brain was pulsating nicely with CSF pulsation. Because there was some amount of subarachnoid blood, a small arachnoid opening was made with a No. 11 blade. The subarachnoid space was also irrigated with plain saline until clear. There was only a small amount of blood in the subarachnoid space. At this point, the dura was closed with 4-0 Nurolon interrupted suture. The craniotomy bone site was secured with 4 sets of titanium plate and screw system. The galea was closed with 3-0 Vicryl suture, and the skin was closed with 3-0 nylon interrupted suture. A 12-Lao red rubber catheter was laid in the subdural space and which came out through a separate stab incision anteriorly. A sterile head wrap was applied. The patient tolerated the procedure well and was extubated in the operating room. He was moving bilateral upper and lower extremities in the recovery room. Intraoperative findings as well as the patient's postoperative condition were communicated with the patient's family. The patient received 1 dose of 2 g Ancef and 1000 mg of Keppra. All needle and lap pads were correct. The OR timeout procedure was followed. Maritza OWUSU/[id number]
[2018-12-20 06:25] LABS: BASO % 0.3 % (0-2.0); HEMATOCRIT 39.7 % (35.4-49); HEMOGLOBIN 13.5 GM/dL (11.7-16.9); LYMPH % 7.6 % (8-40); MCH 29.9 pg (25.7-33.7); MCHC 33.9 g/dl (32.0-35.9); MEAN CELL VOLUME 88.4 fl (80-96); MEAN PLT VOLUME 9.3 fl (7.5-11.1); MONO % 2.9 % (3.8-10.2); NEUT % 89.2 % (42.8-82.8); PLATELET COUNT 303 K/MM3 (134-434); RBC 4.49 M/mm3 (4.00-5.60); RDW 12.9 % (11.9-15.9); WHITE BLOOD COUNT 10.5 K/mm3 (4.0-10.0)
[2018-12-20 07:12] LABS: ALBUMIN 3.2 g/dl (3.4-5.0); ALK PHOS 122 U/L (45-117); ANION GAP 7 MMOL/L (8-16); BILIRUBIN,TOTAL 0.9 mg/dL (0.2-1); BLOOD UREA NITROGEN 9 mg/dL (7-18); CALCIUM 8.5 mg/dL (8.5-10.1); CHLORIDE 102 mmol/L (98-107); CO2 29 mmol/L (21-32); CREATININE 0.9 mg/dL (0.55-1.3); GLUCOSE,RANDOM 244 mg/dL (74-106); MAGNESIUM 2.2 mg/dL (1.8-2.4); PHOSPHOROUS 3.5 mg/dL (2.5-4.9); SGOT/AST 20 U/L (15-37); SGPT/ALT 30 U/L (13-61); SODIUM 139 mmol/L (136-145); TOT PROT 6.8 g/dl (6.4-8.2)
--- NOTE | 2018-12-20 08:20 | PN ---
Progress Note (short form) - Note Progress Note: NEUROSURGERY POD #1 IN ICU Headaches last night, better this am No N/V, no sz L arm less weak and less numb PE: AF, VSS HEENT- Dressing intact; Neck- supple; Cor- RR; Lungs- CTA B; Abd- benign; Ext- no sign of DVT Drain- 35cc total A/A; speech fluent CN- intact; Motor- L hand 4+-5 (improved), minimal L UE drift; Sensation- intact LT; DTR- 1+ On sliding scale Symptomatic R SDH s/p R craniotomy for drainage and subdural drain placement Keppra for sz prophylaxis Cont IVF Postop head CT pending D/C [place], D/c subdural drain, and OOB if CT improves
--- NOTE | 2018-12-20 08:43 | PN ---
Progress Note (short form) - Note Progress Note: Post op day#1.S/P Craniotomy with evacuation of sundural hematoma under GA uneventful.P 50,BP 118/60 and Spo2 97% on O2 2L NC.Patient stable.No any anesthesia related problem.Patient DC from the anesthesia care.
[2018-12-20] MEDS: PANTOPRAZOLE SODIUM 40 MG VIAL IVPUSH SCH (09:23)
[2018-12-20] MEDS: levETIRAcetam 500 MG/5 ML INJECTION VIAL IVPB SCH ×2 (09:23→21:26)
--- NOTE | 2018-12-20 10:20 | CONSULT ---
Admitting History and Physical - Primary Care Physician PCP: Janneth Forman - Admission History of Present Illness: Per EMR: 63-year-old male with history of diabetes on metformin presents with 3 weeks of intermittent headaches and 4 days of imbalance with discoordination of the left hand. Patient without history of recurring headaches, around 3 weeks ago started noticing left temporal headache varying in severity, sometimes sharp and radiating about the occiput. Slight nausea when headache is most prominent, particularly in the morning. The headache is slightly exacerbated by positional changes such as bending down. No actual vomiting, no acute vision changes though he was diagnosed with glaucoma by an logging superintendent in the past, no speech issues. In the setting, beginning about 4-5 days ago the patient began noting some imbalance with walking and discoordination of his left hand described as missing objects and dropping them. He is right-hand dominant, no issues of the right side or the left leg. No recent head injury, no smoking/ drinking/abuse, no history of cardiac/stroke/cancer issues. 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 - Admission Reason For Visit: SUBDURAL HEMATOMA - Diagnostics X-ray: Report Reviewed CT Scan: Report Reviewed - General Mental Status: Alert and Oriented, Awake and Alert, Able to Follow Commands Attention: Intact Ability to Follow Directions: Excellent Head/Neck Control: WFL - Hearing Hearing: Normal Hearing Aide: No Speech Evaluation - Communication Primary Language: LAO Communication: Yes: Within Normal Limits Oral Expression Ability: Yes: No Impairment - Speech Production Able to Make Needs Known: Yes: WNL Intelligibility: Yes: Mildly Impaired - Speech Characteristics Voice Loudness: Mildly Soft/Quiet Voice Pitch: Yes: Normal Voice Phonatory-based Quality: Yes: Hoarse, Dysphonia Speech Pattern: Normal Speech Clarity: < 100% Nasal Resonance: Normal Articulation: Yes: Precise Rate of Speech: Intact - Language/Auditory Comprehension Follows: Yes: 2 Stage Simple Commands - Language/Verbal Expression Able to Respond to Simple Queries: Yes: WNL Able to Communicate Wants and Needs: Yes: WNL Functional Communication Status: Yes: WNL - Memory/Perception 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 Memory: Yes: WNL Short Term Memory: Yes: WNL - Swallow Evaluation/Bedside Assessment Current Nutritional Intake: NPO Oral Secretions: Yes: WFL Dentition: Yes: Adequate, Missing Teeth (has dentures at home) Facial Symmetry at Rest: Symmetrical Facial Symmetry on Retraction: Symmetrical Facial Movement: Controlled Sensation: Normal Against Resistance Opening: Normal Against Resistance Closing: Normal Pucker Lips: Normal Smile: Normal Lingual Movement: Normal, Symmetric Lingual Speed of Movement: Normal Lingual Movement Strgth Against Opposition: Normal Lingual Movement Characteristics: Normal Laryngeal Elevation: WFL Laryngeal Movement: Able to Palpate Rate of Intake: WFL Bolus Size: WFL Labial Seal: WFL Chewing: WFL Oral Prep Time: WFL A-P Transit: WFL Pocketing: None Timing of Swallow: WFL Coughing/Throat Clear: No Change in Voice: No Recommendations - Speech Evaluation, Impression/Plan Impression: s/p craniotomy. Mild dysphonia, otherwise speech/language/cognition/ swallowing intact. No assymetry. - Dysphagia Impressions/Plan Swallowing Skills: [facility] Dysphagia Impressions: No Impairment *Silent aspiration: cannot be R/O at bedside Dysphagia Treatment Plan: Small Bites, Chin Tuck/Down, Trial Feedings, Safe Rate , 1/2 tsp. at a time, Elevate HOB during feed Recommendations: Modified Barium Swallow (Monitor tolerance. if cough, congestion, throat clearing, fever) - Recommendations Diet Consistency: Regular (soft easy to chew. Bring in pt's denture) Medication Administration: Whole with water Liquids: Thin Liquids
--- NOTE | 2018-12-20 13:27 | PN ---
Teaching Attending Note Name of Resident: Yanet Tuttle ATTENDING PHYSICIAN STATEMENT I saw and evaluated the patient. I reviewed the resident's note and discussed the case with the resident. I agree with the resident's findings and plan as documented. SUBJECTIVE: Pt seen and examined in the ICU. s/p R parietal craniotomy/microdissection/ drain placement. Repeat CT head with improvemetn in subdural hematoma. Pain controlled. Denies nausea. No focal symptoms. OBJECTIVE: Vital Signs Period Temp Pulse Resp BP Sys/Carrion Pulse Ox Last 24 Hr 97.6 F-98.5 F 46-80 10-20 113-155/52-86 97-100 Intake & Output 12/17/18 12/18/18 12/19/18 12/20/18 23:59 23:59 23:59 23:59 Intake Total 1930 870 Output Total 1190 1235 Balance 740 -365 Weight 77.428 kg Gen: NAD at rest Heart: RRR Lung: decreased breath sounds at the bases Abd: soft, nontender Ext: no edema CBC, BMP 12/20/18 05:30 12/20/18 05:30 Active Medications Acetaminophen/Codeine Phosphate (Tylenol # 3 -) 1 tab PO Q4H PRN PRN Reason: PAIN LEVEL 4 - 6 Last Admin: 12/20/18 01:35 Dose: 1 tab Docusate Sodium (Colace -) 100 mg PO TID [facility] Last Admin: 12/20/18 06:05 Dose: 100 mg Fentanyl (Sublimaze Injection -) 50 mcg IVPUSH Q5M PRN PRN Reason: PAIN-PACU ORDER X 4 DOSES ONLY Cefazolin Sodium (Ancef 1 Gm Premixed Ivpb -) 1 gm in 50 mls @ 100 mls/hr IVPB Q6H-IV DELISA Stop: 12/20/18 20:59 Last Admin: 12/20/18 09:23 Dose: 100 mls/hr Dextrose/Sodium Chloride (Dextrose 5%-Normal Saline+20 Meq Kcl -) 20 meq in 1, 000 mls @ 80 mls/hr IV ASDIR DELISA Last Admin: 12/19/18 21:18 Dose: 80 mls/hr Insulin Aspart (Novolog Vial Sliding Scale -) 1 vial SQ ACHS [facility]; Protocol Last Admin: 12/20/18 06:04 Dose: 2 units Levetiracetam (Keppra Injection -) 500 mg IVPB BID [facility] Last Admin: 12/20/18 09:23 Dose: 500 mg Morphine Sulfate (Morphine Sulfate) 2 mg IVPUSH Q3H PRN PRN Reason: PAIN LEVEL 7 - 10 Ondansetron HCl (Zofran Injection) 4 mg IVPUSH Q6H PRN PRN Reason: NAUSEA AND/OR VOMITING Pantoprazole Sodium (Protonix Iv) 40 mg IVPUSH DAILY [facility] Last Admin: 12/20/18 09:23 Dose: 40 mg ASSESSMENT AND PLAN: Acute on Chronic Subdural Hematoma with Midline Shift s/p R Parietal Craniotomy/Microdissection/Drain placement DM - monitor drain output - neuro checks - continue empiric antiepileptics - incentive spirometry - pain control - bowel regimen - empiric antibiotics - antiemetics as needed - DVT prophylaxis - continue ICU monitoring
--- NOTE | 2018-12-20 14:01 | PN ---
Progress Note (short form) - Note Progress Note: SUBJECTIVE Patient presented to the Unit last night after surgery. Endorses tenderness focal to surgical site but not in acute pain. Improved headache. OBJECTIVE Vital Signs Temperature 98.0 F 12/20/18 11:00 Pulse Rate 65 12/20/18 12:00 Respiratory Rate 20 12/20/18 12:00 Blood Pressure 133/76 12/20/18 12:00 O2 Sat by Pulse Oximetry (%) 100 12/20/18 09:00 General: Awake, alert, and fully oriented Head: No signs of trauma Eyes: EOMI, sclera anicteric ENT: Moist mucus membranes Neck: Normal ROM, supple Lungs: Lungs clear, Normal breath sounds Cardio: Regular rhythm, S1 and S2 present Abdomen: Soft, nontender Extremities: Moving all extremities, Distal pulses present SKIN: Warm, Dry, normal turgor Neurologic: Cranial nerves II through XII intact. Normal speech, sensation, coordination. ASSESSMENT 63yo M with PMH of DM, CVA, GERD presenting with headache and left hemiparesis and found to have subdural hematoma, status post right parietal craniotomy, drain placement, and microdissection. PLAN NEURO q1h checks Head of bed at 30 degrees Monitor drainage Post-op Abx PT eval Keppra [address] Head today: status post parietal craniotomy with marked reduction in size of a right parietal subdural hematoma CV No BP needs -address if systolic>160s ID Brain fluid gram stain without organisms ENDO Chronic Diabetes -BGM, NISS FEN Advanced to regular diet today PPX DVT: Mechanical only: SCD's. Incentive spirometer GI: Protonix 40, Senna
--- NOTE | 2018-12-20 16:54 | EKG ---
Test Reason : Blood Pressure : / mmHG Vent. Rate : 064 BPM Atrial Rate : 064 BPM P-R Int : 192 ms QRS Dur : 096 ms QT Int : 362 ms P-R-T Axes : 045 015 023 degrees QTc Int : 373 ms NORMAL SINUS RHYTHM NORMAL ECG WHEN COMPARED WITH ECG OF 10-SEP-2014 17:35, VT INTERVAL HAS DECREASED Confirmed by MD ALYSHA, REFUGIO ([id number]) on 12/20/2018 4:53:41 PM Referred By: Confirmed By:REFUGIO ENCARNACION MD
--- NOTE | 2018-12-20 17:48 | PN ---
Progress Note (short form) - Note Progress Note: NEUROSURGERY POD #1 In ICU No H/A, N/V Up with PT today L arm better Tmax 99.2, VSS HEENT- Dressing intact; Neck- supple; Cor- RR; Lungs- CTA B; Abd- benign; Ext- no sign of DVT Drain- 35cc, and minimal output since earlier this am A/A/Ox4; speech fluent CN- intact; Motor- L hand 4+-5 (improved), minimal L UE drift; Sensation- intact LT; DTR- 1+ Head CT- improved SDH and mass effect On sliding scale Symptomatic R SDH s/p R craniotomy for drainage and subdural drain placement Keppra for sz prophylaxis for at least 1 week Cont IVF D/c'd subdural drain without sequale (new head dressing applied), bedrest HOB flat for 1/2 hours Adv diet Can transfer to floor care tomorrow if stable in AM Avoid straining/lifting/NSAIDS/AC PT/gait/safety I am available at
--- NOTE | 2018-12-20 18:06 | PN ---
Progress Note, Physician History of Present Illness: stable all previous noted - Current Medication List Current Medications: Active Medications Acetaminophen/Codeine Phosphate (Tylenol # 3 -) 1 tab PO Q4H PRN PRN Reason: PAIN LEVEL 4 - 6 Last Admin: 12/20/18 01:35 Dose: 1 tab Docusate Sodium (Colace -) 100 mg PO TID [facility] Last Admin: 12/20/18 15:00 Dose: 100 mg Fentanyl (Sublimaze Injection -) 50 mcg IVPUSH Q5M PRN PRN Reason: PAIN-PACU ORDER X 4 DOSES ONLY Cefazolin Sodium (Ancef 1 Gm Premixed Ivpb -) 1 gm in 50 mls @ 100 mls/hr IVPB Q6H-IV [facility] Stop: 12/20/18 20:59 Last Admin: 12/20/18 16:00 Dose: 100 mls/hr Insulin Aspart (Novolog Vial Sliding Scale -) 1 vial SQ ACHS [facility]; Protocol Last Admin: 12/20/18 17:46 Dose: 2 units Levetiracetam (Keppra Injection -) 500 mg IVPB BID [facility] Last Admin: 12/20/18 09:23 Dose: 500 mg Morphine Sulfate (Morphine Sulfate) 2 mg IVPUSH Q3H PRN PRN Reason: PAIN LEVEL 7 - 10 Ondansetron HCl (Zofran Injection) 4 mg IVPUSH Q6H PRN PRN Reason: NAUSEA AND/OR VOMITING Pantoprazole Sodium (Protonix Iv) 40 mg IVPUSH DAILY [facility] Last Admin: 12/20/18 09:23 Dose: 40 mg - Objective Vital Signs: Vital Signs Temperature 99.2 F 12/20/18 14:18 Pulse Rate 76 12/20/18 14:18 Respiratory Rate 20 12/20/18 14:18 Blood Pressure 128/47 L 12/20/18 14:00 O2 Sat by Pulse Oximetry (%) 100 12/20/18 09:00 HENT: Yes: Other (dressing in place) Cardiovascular: Yes: Regular Rate and Rhythm Respiratory: Yes: CTA Bilaterally Gastrointestinal: Yes: Normal Bowel Sounds Extremities: Yes: WNL Edema: No Neurological: Yes: Alert, Oriented, Other ...Motor Strength: LUE (much improved...) Labs: CBC, BMP 12/20/18 05:30 12/20/18 05:30 INR, PTT INR 1.12 (0.83-1.09) H 12/19/18 13:15 Problem List - Problems (1) Subdural hematoma Assessment/Plan: s/p surgery doing well Code(s): S06.5X9A - TRAUM SUBDR HEM W LOC OF UNSP DURATION, INIT (2) Weakness of left upper extremity Assessment/Plan: left arm much improved physical therapy Code(s): R29.898 - OTH SYMPTOMS AND SIGNS INVOLVING THE MUSCULOSKELETAL SYSTEM Assessment/Plan cc time 35 min
[2018-12-21] MEDS: DOCUSATE SODIUM 100 MG CAPSULE (FP) PO SCH ×3 (05:43→21:33)
--- NOTE | 2018-12-21 05:59 | PN ---
Progress Note (short form) - Note Progress Note: NEUROSURGERY POD #2 In ICU No reported H/A, N/V Up with PT yesterday L arm better Tmax 99.2, now 98.4, AF, VSS Dressing with no additional drainage after drain out per RN On sliding scale Symptomatic R SDH s/p R craniotomy for drainage and subdural drain placement - clinically improved Cont IVF Adv diet Can transfer to floor care this AM if stable after PT Avoid straining/lifting/NSAIDS/AC PT/gait/safety Cont Keppra for 7 days total
[2018-12-21] MEDS: INSULIN SLIDING SCALE (NOVOLOG) 1 VIAL SQ SCH ×4 (06:05→21:34)
[2018-12-21 06:26] LABS: BASO % 0.1 % (0-2.0); HEMATOCRIT 35.2 % (35.4-49); HEMOGLOBIN 11.8 GM/dL (11.7-16.9); LYMPH % 11.4 % (8-40); MCH 29.4 pg (25.7-33.7); MCHC 33.6 g/dl (32.0-35.9); MEAN CELL VOLUME 87.5 fl (80-96); MEAN PLT VOLUME 9.1 fl (7.5-11.1); MONO % 5.2 % (3.8-10.2); NEUT % 83.3 % (42.8-82.8); PLATELET COUNT 268 K/MM3 (134-434); RBC 4.03 M/mm3 (4.00-5.60); WHITE BLOOD COUNT 11.1 K/mm3 (4.0-10.0)
[2018-12-21 06:55] LABS: ALBUMIN 2.8 g/dl (3.4-5.0); ALK PHOS 103 U/L (45-117); ANION GAP 6 MMOL/L (8-16); BILIRUBIN,TOTAL 0.6 mg/dL (0.2-1); BLOOD UREA NITROGEN 13 mg/dL (7-18); CALCIUM 8.4 mg/dL (8.5-10.1); CHLORIDE 103 mmol/L (98-107); CO2 30 mmol/L (21-32); CREATININE 0.8 mg/dL (0.55-1.3); GLUCOSE,RANDOM 239 mg/dL (74-106); MAGNESIUM 2.2 mg/dL (1.8-2.4); PHOSPHOROUS 2.6 mg/dL (2.5-4.9); POTASSIUM 4.4 mmol/L (3.5-5.1); SGOT/AST 10 U/L (15-37); SGPT/ALT 20 U/L (13-61); SODIUM 139 mmol/L (136-145); TOT PROT 5.9 g/dl (6.4-8.2)
[2018-12-21 08:38] LABS: INR 1.08 (0.83-1.09); PROTHROMBIN TIME (PATIENT) 12.7 SEC (9.7-13.0)
[2018-12-21 08:41] LABS: ACTIVATED PTT 27.8 SECONDS (25.2-36.5)
[2018-12-21] MEDS: PANTOPRAZOLE SODIUM 40 MG VIAL IVPUSH SCH (10:04)
[2018-12-21] MEDS: levETIRAcetam 500 MG/5 ML INJECTION VIAL IVPB SCH (10:04)
[2018-12-21] MEDS ORDERED: PT OWN MED DRAWER 7, Y5N ONE (10:42)
--- NOTE | 2018-12-21 11:23 | PN ---
Physical Exam: SUBJECTIVE: Patient seen and examined at bedside. No overnight events. No new complaints. POD #2 s/p craniotomy. Feels well overall. Denies CP,MAYORGA, SOB, abdominal pain, nausea or vomiting. OBJECTIVE: Vital Signs Period Temp Pulse Resp BP Sys/Carrion Pulse Ox Last 24 Hr 97.9 F-99.2 F 55-94 12-20 105-135/42-76 General: Awake, alert, and fully oriented Head: No signs of trauma Eyes: EOMI, sclera anicteric ENT: Moist mucus membranes Neck: Normal ROM, supple Lungs: Lungs clear, Normal breath sounds Cardio: Regular rhythm, S1 and S2 present Abdomen: Soft, nontender Extremities: Moving all extremities, Distal pulses present SKIN: Warm, Dry, normal turgor Neurologic: Cranial nerves II through XII intact. Normal speech, sensation, coordination. Laboratory Results - last 24 hr 12/20/18 12/20/18 12/21/18 11:09 17:00 05:30 WBC 11.1 H RBC 4.03 Hgb 11.8 Hct 35.2 L MCV 87.5 MCH 29.4 MCHC 33.6 RDW 13.0 Plt Count 268 MPV 9.1 Absolute Neuts (auto) 9.3 H Neutrophils % 83.3 H Lymphocytes % 11.4 D Monocytes % 5.2 Eosinophils % 0.0 Basophils % 0.1 Nucleated RBC % 0 PT with INR INR PTT (Actin FS) Sodium Potassium Chloride Carbon Dioxide Anion Gap BUN Creatinine Creat Clearance w eGFR POC Glucometer [phone] Random Glucose Calcium Phosphorus Magnesium Total Bilirubin AST ALT Alkaline Phosphatase Total Protein Albumin 12/21/18 12/21/18 05:30 08:00 WBC RBC Hgb Hct MCV MCH MCHC RDW Plt Count MPV Absolute Neuts (auto) Neutrophils % Lymphocytes % Monocytes % Eosinophils % Basophils % Nucleated RBC % PT with INR 12.70 INR 1.08 PTT (Actin FS) 27.8 Sodium 139 Potassium 4.4 Chloride 103 Carbon Dioxide 30 Anion Gap 6 L BUN 13 Creatinine 0.8 Creat Clearance w eGFR > 60 POC Glucometer Random Glucose 239 H Calcium 8.4 L Phosphorus 2.6 Magnesium 2.2 Total Bilirubin 0.6 AST 10 L ALT 20 Alkaline Phosphatase 103 Total Protein 5.9 L Albumin 2.8 L Active Medications Generic Name Dose Route Start Last Admin Trade Name Freq PRN Reason Stop Dose Admin Acetaminophen/Codeine Phosphate 1 tab 12/19/18 19:01 12/20/18 01:35 Tylenol # 3 - PO 1 tab Q4H PRN Administration PAIN LEVEL 4 - 6 Docusate Sodium 100 mg 12/19/18 22:00 12/21/18 05:43 Colace - PO 100 mg TID DELISA Administration Fentanyl 50 mcg 12/19/18 19:47 Sublimaze Injection - IVPUSH Q5M PRN PAIN-PACU ORDER X 4 DOSES ONLY Insulin Aspart 1 vial 12/19/18 22:00 12/21/18 06:05 Novolog Vial Sliding Scale - SQ 4 units ACHS DELISA Administration Protocol Levetiracetam 500 mg 12/19/18 22:00 12/21/18 10:04 Keppra Injection - IVPB 500 mg BID DELISA Administration Morphine Sulfate 2 mg 12/20/18 01:49 12/20/18 21:36 Morphine Sulfate IVPUSH 2 mg Q3H PRN Administration PAIN LEVEL 7 - 10 Ondansetron HCl 4 mg 12/19/18 19:47 Zofran Injection IVPUSH Q6H PRN NAUSEA AND/OR VOMITING Pantoprazole Sodium 40 mg 12/20/18 10:00 12/21/18 10:04 Protonix Iv IVPUSH 40 mg DAILY DELISA Administration ASSESSMENT/PLAN: 63yo M with PMH of DM, CVA, GERD presenting with headache and left hemiparesis and found to have subdural hematoma, status post right parietal craniotomy, drain placement, and microdissection. PLAN NEURO: * q1h checks * Head of bed at 30 degrees * PT eval * Keppra 500 BID * Repeat CT Head :status post parietal craniotomy with marked reduction in size of a right parietal subdural hematoma CV: * No BP needs * Maintain SBP <160 ID: * Brain fluid gram stain without organisms ENDO: * Chronic Diabetes * BGM * NISS FEN * No fluid * no electrolyte abnormalities. * tolerating advanced diet. PPx: * DVT: Mechanical only: SCD's. * Incentive spirometer * GI: Protonix 40, Senna DISPO: Will transfer to / once seen by physical therapy. Visit type - Emergency Visit Emergency Visit: Yes ED Registration Date: 12/19/18 Care time: The patient presented to the Emergency Department on the above date and was hospitalized for further evaluation of their emergent condition. - New Patient This patient is new to me today: Yes Date on this admission: 12/21/18 - Critical Care Critical Care patient: Yes Total Critical Care Time (in minutes): 35 Critical Care Statement: The care of this patient involved high complexity decision making to prevent further life threatening deterioration of the patient 's condition and/or to evaluate & treat vital organ system(s) failure or risk of failure.
--- NOTE | 2018-12-21 13:00 | PN ---
Teaching Attending Note Name of Resident: Parker Rodriguez ATTENDING PHYSICIAN STATEMENT I saw and evaluated the patient. I reviewed the resident's note and discussed the case with the resident. I agree with the resident's findings and plan as documented. SUBJECTIVE: Pt seen and examined in the ICU. Drain out. Denies headache, nausea. OBJECTIVE: Vital Signs Period Temp Pulse Resp BP Sys/Carrion Pulse Ox Last 24 Hr 97.9 F-99.2 F 55-94 12-20 105-135/42-76 Intake & Output 12/18/18 12/19/18 12/20/18 12/21/18 23:59 23:59 23:59 23:59 Intake Total 1930 1670 100 Output Total 1190 2625 450 Balance 740 -475 -350 Weight 77.428 kg 78.199 kg Gen: NAD at rest Heart: RRR Lung: decreased breath sounds at the bases Abd: soft, nontender Ext: no edema CBC, BMP 12/21/18 05:30 12/21/18 05:30 Active Medications Acetaminophen/Codeine Phosphate (Tylenol # 3 -) 1 tab PO Q4H PRN PRN Reason: PAIN LEVEL 4 - 6 Last Admin: 12/20/18 01:35 Dose: 1 tab Docusate Sodium (Colace -) 100 mg PO TID [facility] Last Admin: 12/21/18 05:43 Dose: 100 mg Fentanyl (Sublimaze Injection -) 50 mcg IVPUSH Q5M PRN PRN Reason: PAIN-PACU ORDER X 4 DOSES ONLY Insulin Aspart (Novolog Vial Sliding Scale -) 1 vial SQ [facility]; Protocol Last Admin: 12/21/18 12:07 Dose: Not Given Levetiracetam (Keppra Injection -) 500 mg IVPB BID [facility] Last Admin: 12/21/18 10:04 Dose: 500 mg Morphine Sulfate (Morphine Sulfate) 2 mg IVPUSH Q3H PRN PRN Reason: PAIN LEVEL 7 - 10 Last Admin: 12/20/18 21:36 Dose: 2 mg Ondansetron HCl (Zofran Injection) 4 mg IVPUSH Q6H PRN PRN Reason: NAUSEA AND/OR VOMITING Pantoprazole Sodium (Protonix Iv) 40 mg IVPUSH DAILY [facility] Last Admin: 12/21/18 10:04 Dose: 40 mg Polyethylene Glycol (Miralax (For Daily Use) -) 17 gm PO BID DELISA ASSESSMENT AND PLAN: Acute on Chronic Subdural Hematoma with Midline Shift s/p R Parietal Craniotomy/Microdissection/Drain placement DM - neuro checks - continue empiric antiepileptics - incentive spirometry - pain control - bowel regimen - antiemetics as needed - rehab/PT - DVT prophylaxis - can monitor on floor
--- NOTE | 2018-12-21 14:46 | PN ---
Progress Note, AUDIO RECORDING ENGINEER - Note Progress Note: Selected Entries 12/20/18 12/20/18 12/20/18 02:00 06:00 11:00 Breakfast Lunch Supper Temperature 97.6 F 97.8 F 98.0 F Respiratory Rate Respiratory Depth Respiratory Effort 12/20/18 12/20/18 12/20/18 14:18 14:39 19:57 Breakfast 75% Lunch 50% Supper 75% Temperature 99.2 F Respiratory Rate Respiratory Depth Respiratory Effort 12/20/18 12/21/18 12/21/18 22:00 00:00 02:00 Breakfast Lunch Supper Temperature 97.9 F 98.4 F Respiratory 12 15 Rate Respiratory Depth Respiratory Effort 12/21/18 12/21/18 12/21/18 04:00 06:00 09:00 Breakfast Lunch Supper Temperature 98.6 F Respiratory 16 13 Rate Respiratory Normal Depth Respiratory Non-Labored Effort 12/21/18 12/21/18 12/21/18 09:04 09:25 10:00 Breakfast 75% Lunch Supper Temperature 98.4 F Respiratory 18 18 Rate Respiratory Depth Respiratory Effort 12/21/18 12/21/18 12/21/18 10:32 12:00 12:56 Breakfast 100% Lunch 100% Supper Temperature Respiratory 19 Rate Respiratory Depth Respiratory Effort Laboratory Tests 12/19/18 12/20/18 12/21/18 13:15 05:30 05:30 WBC 6.3 10.5 H 11.1 H Doing quite well, verbal, oriented, swallowing intact, good appetite.
--- NOTE | 2018-12-21 15:37 | PATH ---
Cytology Non-Gynecological Report Patient Name: HANSEL LIVINGSTON Med. Rec. 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 Specimen(s) Received BRAIN FLUID SUBDURAL Clinical History Acute and chronic subdural hematoma Final Diagnosis SUBDURAL BRAIN FLUID FOR CYTOLOGY: SATISFACTORY FOR EVALUATION. NO MALIGNANT CELLS IDENTIFIED. RARE AGGREGATES OF NEUTROPHILS, LYMPHOCYTES, AND FEW DEGENERATED CELLS IN HEMORRHAGIC BACKGROUND. Comment: See concurrent material ([id number]). Electronically Signed Sandhya Black M.D. Gross Description Approximately <1 cc of bloody fluid received fresh. One cytofunnel prepared and Pap stained. One cellblock prepared.
[2018-12-21 16:06] VITALS: BMI 24.7
--- NOTE | 2018-12-21 16:15 | PATH ---
Surgical Pathology Report Patient Name: HANSEL LIVINGSTON [facility]. Rec. 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 Specimen(s) Received A: SUBDURAL HEMATOMA B: SUBDURAL MEMBRANES Clinical History Subdural hematoma Final Diagnosis A. SUBDURAL HEMATOMA, CRANIOTOMY: ORGANIZED BLOOD/FIBRIN CLOT. B. SUBDURAL MEMBRANE, CRANIOTOMY: FIBROMEMBRANOUS TISSUE WITH ACUTE AND CHRONIC INFLAMMATION, HEMOSIDERIN DEPOSITION, REACTIVE CHANGES, AND ADHERENT ORGANIZING BLOOD/FIBRIN CLOT. Comment: See concurrent cytology ([id number]). Electronically Signed Sandhya Black M.D. Gross Description A. Received in formalin labeled "subdural hematoma" are multiple irregular fragments of hemorrhagic tissue measuring 2 x 1.5 x 0.5 cm. The entire specimen is submitted in one cassette. B. Received in formalin labeled "subdural membrane" is an irregular fragment of fibromembranous tissue with adherent organized blood clot which measures 3.5 x 2 x 2 cm. The specimen is serially sectioned and entirely submitted in 2 cassettes. MLSZ/12/20/2018 sanml/12/20/2018
--- NOTE | 2018-12-21 18:14 | PN ---
Progress Note, Physician History of Present Illness: stable all previous noted - Current Medication List Current Medications: Active Medications Acetaminophen/Codeine Phosphate (Tylenol # 3 -) 1 tab PO Q4H PRN PRN Reason: PAIN LEVEL 4 - 6 Last Admin: 12/20/18 01:35 Dose: 1 tab Docusate Sodium (Colace -) 100 mg PO TID [facility] Last Admin: 12/21/18 14:39 Dose: 100 mg Insulin Aspart (Novolog Vial Sliding Scale -) 1 vial SQ ACHS [facility]; Protocol Last Admin: 12/21/18 17:06 Dose: 4 units Levetiracetam (Keppra Injection -) 500 mg IVPB BID [facility] Last Admin: 12/21/18 10:04 Dose: 500 mg Morphine Sulfate (Morphine Sulfate) 2 mg IVPUSH Q3H PRN PRN Reason: PAIN LEVEL 7 - 10 Last Admin: 12/20/18 21:36 Dose: 2 mg Ondansetron HCl (Zofran Injection) 4 mg IVPUSH Q6H PRN PRN Reason: NAUSEA AND/OR VOMITING Pantoprazole Sodium (Protonix Iv) 40 mg IVPUSH DAILY [facility] Last Admin: 12/21/18 10:04 Dose: 40 mg Polyethylene Glycol (Miralax (For Daily Use) -) 17 gm PO BID [facility] - Objective Vital Signs: Vital Signs Temperature 98.1 F 12/21/18 17:32 Pulse Rate 99 H 12/21/18 17:32 Respiratory Rate 18 12/21/18 17:32 Blood Pressure 131/87 12/21/18 17:32 O2 Sat by Pulse Oximetry (%) 100 12/20/18 09:00 Constitutional: Yes: No Distress HENT: Yes: Other (dressing in place) Neck: Yes: Supple Cardiovascular: Yes: Regular Rate and Rhythm Respiratory: Yes: CTA Bilaterally Gastrointestinal: Yes: Normal Bowel Sounds Extremities: Yes: WNL Edema: No Peripheral Pulses WNL: Yes Neurological: Yes: Alert, Oriented Labs: CBC, BMP 12/21/18 05:30 12/21/18 05:30 INR, PTT INR 1.08 (0.83-1.09) 12/21/18 08:00 Problem List - Problems (1) Subdural hematoma Assessment/Plan: s/p surgery doing well transfer to floor Code(s): S06.5X9A - TRAUM SUBDR HEM W LOC OF UNSP DURATION, INIT (2) Weakness of left upper extremity Assessment/Plan: much improved Code(s): R29.898 - OT SYMPTOMS AND SIGNS INVOLVING THE MUSCULOSKELETAL SYSTEM
[2018-12-21] MEDS ORDERED: MORPHINE SULFATE 2 MG/ML VIAL IVPUSH PRN (20:49)
[2018-12-21] MEDS ORDERED: ACETAMINOPHEN WITH CODEINE 300MG/30MG TABLET PO PRN (20:49)
[2018-12-21] MEDS ORDERED: ONDANSETRON 4 MG/2 ML VIAL IVPUSH PRN (20:49)
[2018-12-21] MEDS: POLYETHYLENE GLYCOL 3350 119 GM BTL PO SCH (21:33)
[2018-12-21] MEDS ORDERED: levETIRAcetam 500 MG/5 ML INJECTION VIAL IVPB SCH (22:00)
[2018-12-22] MEDS: INSULIN SLIDING SCALE (NOVOLOG) 1 VIAL SQ SCH ×4 (06:19→21:15)
[2018-12-22] MEDS: DOCUSATE SODIUM 100 MG CAPSULE (FP) PO SCH ×3 (06:19→21:04)
[2018-12-22 06:25] LABS: EOS % 0.5 % (0-4.5); HEMOGLOBIN 11.9 GM/dL (11.7-16.9); LYMPH % 30.1 % (8-40); MCH 30.1 pg (25.7-33.7); MEAN CELL VOLUME 88.4 fl (80-96); MEAN PLT VOLUME 8.5 fl (7.5-11.1); MONO % 8.4 % (3.8-10.2); PLATELET COUNT 279 K/MM3 (134-434); RBC 3.96 M/mm3 (4.00-5.60); WHITE BLOOD COUNT 6.3 K/mm3 (4.0-10.0)
[2018-12-22 06:51] LABS: ALBUMIN 2.7 g/dl (3.4-5.0); ALK PHOS 91 U/L (45-117); ANION GAP 5 MMOL/L (8-16); BILIRUBIN,TOTAL 0.6 mg/dL (0.2-1); BLOOD UREA NITROGEN 13 mg/dL (7-18); CALCIUM 8.3 mg/dL (8.5-10.1); CHLORIDE 106 mmol/L (98-107); CO2 30 mmol/L (21-32); CREATININE 0.8 mg/dL (0.55-1.3); GLUCOSE,RANDOM 131 mg/dL (74-106); PHOSPHOROUS 2.2 mg/dL (2.5-4.9); POTASSIUM 3.9 mmol/L (3.5-5.1); SGOT/AST 16 U/L (15-37); SGPT/ALT 22 U/L (13-61); SODIUM 141 mmol/L (136-145); TOT PROT 5.6 g/dl (6.4-8.2)
[2018-12-22] MEDS ORDERED: PANTOPRAZOLE SODIUM 40 MG VIAL IVPUSH SCH (10:00)
[2018-12-22] MEDS: POLYETHYLENE GLYCOL 3350 119 GM BTL PO SCH ×2 (10:15→21:04)
[2018-12-22] MEDS: levETIRAcetam 500 MG TABLET (FP) PO SCH ×2 (10:15→21:12)
[2018-12-22] MEDS ORDERED: NAPH,MB-DB/K PH,MBDB POWDER PACKET PO ONE (12:00)
--- NOTE | 2018-12-22 12:22 | PN ---
Teaching Attending Note Name of Resident: Ynaet Tuttle ATTENDING PHYSICIAN STATEMENT I saw and evaluated the patient. I reviewed the resident's note and discussed the case with the resident. I agree with the resident's findings and plan as documented. SUBJECTIVE: Pt seen and examined in the ICU. No current complaints. Pain controlled. No fevers or chills. OBJECTIVE: Vital Signs Period Temp Pulse Resp BP Sys/Carrion Pulse Ox Last 24 Hr 98 F-99 F 55-99 17-21 106-132/47-101 Intake & Output 12/19/18 12/20/18 12/21/18 12/22/18 23:59 23:59 23:59 23:59 Intake Total 1930 1670 450 200 Output Total 1190 2625 450 Balance 740 -955 0 200 Weight 77.428 kg 78.018 kg Gen: NAD at rest Heart: RRR Lung: decreased breath sounds at the bases Abd: soft, nontender Ext: no edema CBC, BMP 12/22/18 05:30 12/22/18 05:30 Active Medications Acetaminophen/Codeine Phosphate (Tylenol # 3 -) 1 tab PO Q4H PRN PRN Reason: PAIN LEVEL 4 - 6 Docusate Sodium (Colace -) 100 mg PO TID [facility] Last Admin: 12/22/18 06:19 Dose: Not Given Insulin Aspart (Novolog Vial Sliding Scale -) 1 vial SQ ACHS [facility]; Protocol Last Admin: 12/22/18 06:19 Dose: Not Given Levetiracetam (Keppra -) 500 mg PO BID [facility] Last Admin: 12/22/18 10:15 Dose: 500 mg Morphine Sulfate (Morphine Sulfate) 2 mg IVPUSH Q3H PRN PRN Reason: PAIN LEVEL 7 - 10 Polyethylene Glycol (Miralax (For Daily Use) -) 17 gm PO BID [facility] Last Admin: 12/22/18 10:15 Dose: Not Given ASSESSMENT AND PLAN: Acute on Chronic Subdural Hematoma with Midline Shift s/p R Parietal Craniotomy/Microdissection/Drain placement DM - continue empiric antiepileptics - incentive spirometry - pain control - bowel regimen - antiemetics as needed - rehab/PT - DVT prophylaxis - can monitor on floor or d/c home
--- NOTE | 2018-12-22 12:59 | PN ---
Progress Note (short form) - Note Progress Note: SUBJECTIVE Patient presented to the Unit last night after surgery. Endorses tenderness focal to surgical site but not in acute pain. No headache. OBJECTIVE Vital Signs Temperature 99 F 12/22/18 10:00 Pulse Rate 60 12/22/18 10:00 Respiratory Rate 18 12/22/18 10:00 Blood Pressure 132/56 L 12/22/18 10:00 O2 Sat by Pulse Oximetry (%) 100 12/20/18 09:00 General: Awake, alert, and fully oriented Head: No signs of trauma Eyes: EOMI, sclera anicteric ENT: Moist mucus membranes Neck: Normal ROM, supple Lungs: Lungs clear, Normal breath sounds Cardio: Regular rhythm, S1 and S2 present Abdomen: Soft, nontender Extremities: Moving all extremities, Distal pulses present SKIN: Warm, Dry, normal turgor Neurologic: Cranial nerves II through XII intact. Normal speech, sensation, coordination. ASSESSMENT 63yo M with PMH of DM, CVA, GERD presenting with headache and left hemiparesis and found to have subdural hematoma, status post right parietal craniotomy, drain placement, and microdissection. POD 2. PLAN Dispo per surgery NEURO q1h checks Head of bed at 30 degrees Drain removed PT eval Keppra [address] Head 12/20: status post parietal craniotomy with marked reduction in size of a right parietal subdural hematoma CV No BP needs -address if systolic>160s ID Brain fluid gram stain without organisms ENDO Chronic Diabetes -BGM, NISS FEN Regular diet Monitor electrolytes -Replete as needed -Phosphate=2.2, repleted PPX DVT: SCD's Incentive spirometer GI: Colace, Miralax
--- NOTE | 2018-12-22 16:36 | PN ---
Progress Note, Physician History of Present Illness: doing well - Current Medication List Current Medications: Active Medications Acetaminophen/Codeine Phosphate (Tylenol # 3 -) 1 tab PO Q4H PRN PRN Reason: PAIN LEVEL 4 - 6 Docusate Sodium (Colace -) 100 mg PO TID [facility] Last Admin: 12/22/18 06:19 Dose: Not Given Insulin Aspart (Novolog Vial Sliding Scale -) 1 vial SQ ACHS [facility]; Protocol Last Admin: 12/22/18 13:15 Dose: 2 units Levetiracetam (Keppra -) 500 mg PO BID [facility] Last Admin: 12/22/18 10:15 Dose: 500 mg Morphine Sulfate (Morphine Sulfate) 2 mg IVPUSH Q3H PRN PRN Reason: PAIN LEVEL 7 - 10 Polyethylene Glycol (Miralax (For Daily Use) -) 17 gm PO BID [facility] Last Admin: 12/22/18 10:15 Dose: Not Given - Objective Vital Signs: Vital Signs Temperature 99 F 12/22/18 10:00 Pulse Rate 64 12/22/18 12:00 Respiratory Rate 66 H 12/22/18 12:00 Blood Pressure 122/58 L 12/22/18 12:00 O2 Sat by Pulse Oximetry (%) 100 12/20/18 09:00 Constitutional: Yes: No Distress HENT: Yes: Other (dressing in place) Neck: Yes: Supple Cardiovascular: Yes: Regular Rate and Rhythm Respiratory: Yes: CTA Bilaterally Extremities: Yes: WNL Edema: No Peripheral Pulses WNL: Yes Neurological: Yes: Alert, Oriented ...Motor Strength: WNL Labs: CBC, BMP 12/22/18 05:30 12/22/18 05:30 INR, PTT INR 1.08 (0.83-1.09) 12/21/18 08:00 Problem List - Problems (1) Subdural hematoma Assessment/Plan: s/p surgery doing well transfer to floor Code(s): S06.5X9A - TRAUM SUBDR HEM W LOC OF UNSP DURATION, INIT (2) Weakness of left upper extremity Assessment/Plan: doing well walking eating no pain strength almost back to normal Code(s): R29.898 - OTH SYMPTOMS AND SIGNS INVOLVING THE MUSCULOSKELETAL SYSTEM Assessment/Plan CC TIME 35 MIN
[2018-12-23 06:22] LABS: BASO % 1.5 % (0-2.0); EOS % 1.3 % (0-4.5); HEMATOCRIT 35.5 % (35.4-49); HEMOGLOBIN 12.3 GM/dL (11.7-16.9); LYMPH % 36.5 % (8-40); MCH 30.3 pg (25.7-33.7); MCHC 34.8 g/dl (32.0-35.9); MEAN PLT VOLUME 8.5 fl (7.5-11.1); MONO % 8.2 % (3.8-10.2); NEUT % 52.5 % (42.8-82.8); PLATELET COUNT 296 K/MM3 (134-434); RBC 4.08 M/mm3 (4.00-5.60); RDW 12.6 % (11.9-15.9); WHITE BLOOD COUNT 5.9 K/mm3 (4.0-10.0)
[2018-12-23] MEDS: INSULIN SLIDING SCALE (NOVOLOG) 1 VIAL SQ SCH ×3 (06:33→17:45)
[2018-12-23] MEDS: DOCUSATE SODIUM 100 MG CAPSULE (FP) PO SCH ×2 (06:34→16:09)
[2018-12-23 07:34] LABS: ALBUMIN 2.9 g/dl (3.4-5.0); ALK PHOS 110 U/L (45-117); ANION GAP 6 MMOL/L (8-16); BILIRUBIN,TOTAL 0.7 mg/dL (0.2-1); BLOOD UREA NITROGEN 11 mg/dL (7-18); CALCIUM 8.7 mg/dL (8.5-10.1); CHLORIDE 104 mmol/L (98-107); CO2 31 mmol/L (21-32); CREATININE 0.9 mg/dL (0.55-1.3); GLUCOSE,RANDOM 134 mg/dL (74-106); PHOSPHOROUS 3.5 mg/dL (2.5-4.9); POTASSIUM 4.4 mmol/L (3.5-5.1); SGOT/AST 24 U/L (15-37); SGPT/ALT 32 U/L (13-61); SODIUM 141 mmol/L (136-145); TOT PROT 6.2 g/dl (6.4-8.2)
--- NOTE | 2018-12-23 07:55 | PN ---
Progress Note (short form) - Note Progress Note: NEUROSURGERY POD #4 In ICU No H/A, N/V Tolerating diet Up with PT yesterday L arm better Tmax 98.9, AF, VSS Dressing C/D/I On sliding scale Symptomatic R SDH s/p R craniotomy for drainage and subdural drain placement - clinically improved Keep well hydrated Floor care Avoid straining/lifting/NSAIDS/AC PT/gait/safety Cont Keppra for 7 days total D/C sutures in about 6-7 days in the office
[2018-12-23 09:13] VITALS: TEMP 98.2
[2018-12-23] MEDS: levETIRAcetam 500 MG TABLET (FP) PO SCH (10:05)
[2018-12-23] MEDS: POLYETHYLENE GLYCOL 3350 119 GM BTL PO SCH (10:05)
--- NOTE | 2018-12-23 13:44 | PN ---
Teaching Attending Note Name of Resident: Yanet Tuttle ATTENDING PHYSICIAN STATEMENT I saw and evaluated the patient. I reviewed the resident's note and discussed the case with the resident. I agree with the resident's findings and plan as documented. SUBJECTIVE: Patient seen and examined in the ICU. No current complaints. Pain controlled. No fevers or chills. OBJECTIVE: Intake & Output 12/20/18 12/21/18 12/22/18 12/23/18 23:59 23:59 23:59 23:59 Intake Total 1670 450 200 500 Output Total 2625 450 Balance -955 0 200 500 Weight 172 lb Last Vital Signs Temp Pulse Resp BP Pulse Ox 98.2 F 72 18 120/59 L 99 12/23/18 09:10 12/23/18 09:10 12/23/18 09:10 12/23/18 09:10 12/23/18 09:00 Active Medications Acetaminophen/Codeine Phosphate (Tylenol # 3 -) 1 tab PO Q4H PRN PRN Reason: PAIN LEVEL 4 - 6 Docusate Sodium (Colace -) 100 mg PO TID [facility] Last Admin: 12/23/18 06:34 Dose: Not Given Insulin Aspart (Novolog Vial Sliding Scale -) 1 vial SQ ACHS [facility]; Protocol Last Admin: 12/23/18 12:03 Dose: 2 units Levetiracetam (Keppra -) 500 mg PO BID [facility] Last Admin: 12/23/18 10:05 Dose: 500 mg Morphine Sulfate (Morphine Sulfate) 2 mg IVPUSH Q3H PRN PRN Reason: PAIN LEVEL 7 - 10 Polyethylene Glycol (Miralax (For Daily Use) -) 17 gm PO BID [facility] Last Admin: 12/23/18 10:05 Dose: 17 gm Gen: NAD at rest Heart: RRR Lung: decreased breath sounds at the bases Abd: soft, nontender Ext: no edema Laboratory Results - last 24 hr 12/21/18 12/22/18 12/22/18 21:30 05:55 16:54 WBC RBC Hgb Hct MCV MCH MCHC RDW Plt Count MPV Absolute Neuts (auto) Neutrophils % Lymphocytes % Monocytes % Eosinophils % Basophils % Nucleated RBC % Sodium Potassium Chloride Carbon Dioxide Anion Gap BUN Creatinine Creat Clearance w eGFR POC Glucometer 212.26048 139.65194 230.18122 Random Glucose Calcium Phosphorus Magnesium Total Bilirubin AST ALT Alkaline Phosphatase Total Protein Albumin 12/22/18 12/23/18 12/23/18 21:11 05:15 05:15 WBC 5.9 RBC 4.08 Hgb 12.3 Hct 35.5 MCV 87.0 MCH 30.3 MCHC 34.8 RDW 12.6 Plt Count 296 MPV 8.5 Absolute Neuts (auto) 3.1 Neutrophils % 52.5 Lymphocytes % 36.5 D Monocytes % 8.2 Eosinophils % 1.3 D Basophils % 1.5 Nucleated RBC % 0 Sodium 141 Potassium 4.4 Chloride 104 Carbon Dioxide 31 Anion Gap 6 L BUN 11 Creatinine 0.9 Creat Clearance w eGFR > 60 POC Glucometer [phone] Random Glucose 134 H Calcium 8.7 Phosphorus 3.5 Magnesium 2.0 Total Bilirubin 0.7 AST 24 ALT 32 Alkaline Phosphatase 110 Total Protein 6.2 L Albumin 2.9 L 12/23/18 12/23/18 05:58 11:59 WBC RBC Hgb Hct MCV MCH MCHC RDW Plt Count MPV Absolute Neuts (auto) Neutrophils % Lymphocytes % Monocytes % Eosinophils % Basophils % Nucleated RBC % Sodium Potassium Chloride Carbon Dioxide Anion Gap BUN Creatinine Creat Clearance w eGFR POC Glucometer 144.01966 214.10533 Random Glucose Calcium Phosphorus Magnesium Total Bilirubin AST ALT Alkaline Phosphatase Total Protein Albumin ASSESSMENT AND PLAN: Acute on Chronic Subdural Hematoma with Midline Shift s/p R Parietal Craniotomy/Microdissection/Drain placement DM - continue empiric antiepileptics - incentive spirometry - pain control - bowel regimen - antiemetics as needed - rehab/PT - DVT prophylaxis - can monitor on floor or d/c home Dr Sabillon
--- NOTE | 2018-12-23 15:06 | DS ---
Physical Examination Vital Signs: Vital Signs Temperature 98.2 F 12/23/18 09:10 Pulse Rate 72 12/23/18 09:10 Respiratory Rate 18 12/23/18 09:10 Blood Pressure 120/59 L 12/23/18 09:10 O2 Sat by Pulse Oximetry (%) 99 12/23/18 09:00 Labs: CBC, BMP 12/23/18 05:15 12/23/18 05:15 Discharge Summary Reason For Visit: SUBDURAL HEMATOMA Current Active Problems Subdural hematoma (Acute) Subdural hematoma (Acute) Weakness of left upper extremity (Acute) Condition: Fair - Instructions Diet, Activity, Other Instructions: do not starin see dr cardenas as per his recommendations Referrals: Coty Suarez [Primary Care Provider] - - Home Medications Comprehensive Discharge Medication List: Ambulatory Orders Bimatoprost [Lumigan] 1 drop OU DAILY 12/19/18 Metformin HCl [Glucophage] 1,000 mg PO BID 12/19/18 Docusate Sodium [Colace -] 100 mg PO TID #30 capsule 12/23/18 levETIRAcetam [Keppra -] 500 mg PO BID #10 tablet 12/23/18 pa home
--- NOTE | 2018-12-23 15:48 | PN ---
Progress Note (short form) - Note Progress Note: SUBJECTIVE Patient presented to the Unit last night after surgery. Endorses tenderness focal to surgical site but not in acute pain. No headache. OBJECTIVE Vital Signs Temperature 99 F 12/22/18 10:00 Pulse Rate 60 12/22/18 10:00 Respiratory Rate 18 12/22/18 10:00 Blood Pressure 132/56 L 12/22/18 10:00 O2 Sat by Pulse Oximetry (%) 100 12/20/18 09:00 General: Awake, alert, and fully oriented Head: No signs of trauma Eyes: EOMI, sclera anicteric ENT: Moist mucus membranes Neck: Normal ROM, supple Lungs: Lungs clear, Normal breath sounds Cardio: Regular rhythm, S1 and S2 present Abdomen: Soft, nontender Extremities: Moving all extremities, Distal pulses present SKIN: Warm, Dry, normal turgor Neurologic: Cranial nerves II through XII intact. Normal speech, sensation, coordination. ASSESSMENT 63yo M with PMH of DM, CVA, GERD presenting with headache and left hemiparesis and found to have subdural hematoma, status post right parietal craniotomy, drain placement, and microdissection. POD 3. PLAN Dispo per surgery NEURO q1h checks Head of bed at 30 degrees Drain removed PT eval Keppra [address] Head 12/20: status post parietal craniotomy with marked reduction in size of a right parietal subdural hematoma CV No BP needs -address if systolic>160s ID Brain fluid gram stain without organisms ENDO Chronic Diabetes -BGM, NISS FEN Regular diet Monitor electrolytes -Replete as needed PPX DVT: SCD's Incentive spirometer GI: Colace, Miralax
[2018-12-23 18:27] VITALS: BP 108/63; PULSE 60
--- NOTE | 2018-12-24 11:50 | PN ---
Progress Note (short form) - Note Progress Note: NEUROSURGERY Called on pt's cell Doing OK, gait fine L arm better Tolerating diet by report Minimal incisional tenderness Pt aware of avoiding straining/lifting/NSAIDS/AC Safety Cont Keppra for 7 days total D/C sutures in about 5-6 days in the office, # given to patient Precautions and symptom monitoring discussed All questions answered
== END 2018-12-23 19:53 | disposition home or self-care (01) | DRG 21 ==
LOC: JER 10:31 → JERBED 14:28 → JICU 20:51
PROVIDERS: ADMIT Internal Medicine; ATTEND Internal Medicine
PROC: 009400Z Drainage of Intracranial Subdural Space with Drainage Device, Open Approach (ICD-10-PCS; 2018-12-19)
PROC: 00C40ZZ Extirpation of Matter from Intracranial Subdural Space, Open Approach (ICD-10-PCS; principal; 2018-12-19 15:45)
DX: I62.00 Nontraumatic subdural hemorrhage, unspecified (principal); E11.9 Type 2 diabetes mellitus without complications; K21.9 Gastro-esophageal reflux disease without esophagitis; M10.9 Gout, unspecified; Z86.73 Personal history of transient ischemic attack (TIA), and cerebral infarction without residual deficits; I69.354 Hemiplegia and hemiparesis following cerebral infarction affecting left non-dominant side; R29.898 Other symptoms and signs involving the musculoskeletal system
CPT/HCPCS: 36415; 70450-TC; 71045-TC-FY; 71046-TC-FY; 80053; 81003; 82465; 82550; 82962; 83718; 83721; 83735; 84100; 84478; 84484; 85025; 85027; 85610; 85730; 86850; 86900; 86901; 87205; 88108; 88304-TC; 88305-TC; 93005; 93010; 94760; 97116-GP; 97161-GP; 99284-25

== ENCOUNTER 2019-11-12 08:40 | Emergency (ER) | payer BC ==
[2019-11-12 08:45] VITALS: BMI 25.1
[2019-11-12] MEDS ORDERED: SODIUM CHLORIDE 2,381 ML IV ONE (09:33)
[2019-11-12] MEDS ORDERED: SODIUM CHLORIDE 1,000 ML IV STA ×2 (09:38→11:05)
[2019-11-12 10:08] LABS: BASO % 0.7 % (0-2.0); EOS % 0.1 % (0-4.5); HEMATOCRIT 43.5 % (35.4-49); HEMOGLOBIN 14.5 GM/dL (11.7-16.9); LYMPH % 8.1 % (8-40); MCH 29.7 pg (25.7-33.7); MCHC 33.4 g/dl (32.0-35.9); MONO % 11.6 % (3.8-10.2); NEUT % 79.5 % (42.8-82.8); PLATELET COUNT 204 K/MM3 (134-434); RBC 4.89 M/mm3 (4.00-5.60); RDW 13.3 % (11.9-15.9)
[2019-11-12 10:11] LABS: VENOUS PC02 57.8 mmHg (38-52); VENOUS PH 7.33 (7.31-7.41)
[2019-11-12 10:15] LABS: VENOUS PO2 < 49 mmHg (28-48)
--- NOTE | 2019-11-12 10:15 | EKG ---
Test Reason : Blood Pressure : / mmHG Vent. Rate : 094 BPM Atrial Rate : 094 BPM P-R Int : 178 ms QRS Dur : 086 ms QT Int : 318 ms P-R-T Axes : 049 011 047 degrees QTc Int : 397 ms NORMAL SINUS RHYTHM NONSPECIFIC T WAVE ABNORMALITY ABNORMAL ECG WHEN COMPARED WITH ECG OF 19-DEC-2018 13:25, NONSPECIFIC T WAVE ABNORMALITY NOW EVIDENT IN LATERAL LEADS Confirmed by DORA MELENDEZ, MORTEZA ([id number]) on 11/12/2019 10:15:16 AM Referred By: Confirmed By:MORTEZA JOHN MD
[2019-11-12 10:26] LABS: INR 1.12 (0.83-1.09); PROTHROMBIN TIME (PATIENT) 13.2 SEC (9.7-13.0)
[2019-11-12] MEDS ORDERED: ACETAMINOPHEN 1000 MG/100 ML VIAL (NON FORMULARY) IVPB ONE (10:27)
[2019-11-12 10:28] LABS: ACTIVATED PTT 33.9 SECONDS (25.2-36.5)
[2019-11-12] MEDS ORDERED: ACETAMINOPHEN INJECTION 100 ML IVPB ONE (10:28)
[2019-11-12] MEDS ORDERED: OSELTAMIVIR PHOSPHATE 75 MG CAPSULE PO ONE (10:32)
[2019-11-12] MEDS ORDERED: OSELTAMIVIR PHOSPHATE 75 MG CAPSULE ONE (10:35)
[2019-11-12 10:38] LABS: ALBUMIN 3.7 g/dl (3.4-5.0); BILIRUBIN,TOTAL 1.6 mg/dL (0.2-1); BLOOD UREA NITROGEN 11.2 mg/dL (7-18); CALCIUM 9.3 mg/dL (8.5-10.1); CREATININE 1.1 mg/dL (0.55-1.3); POTASSIUM 4.4 mmol/L (3.5-5.1)
--- NOTE | 2019-11-12 11:04 | PDOC ---
History of Present Illness - General Chief Complaint: Respiratory Stated Complaint: CHEST PAIN Time Seen by Provider: 11/12/19 09:05 - History of Present Illness Initial Comments: 11/12/19 12:45 HPI: 64 y/o M with hx of pre-diabetes currently managed with diet and SDH s/p parietal craniotomy and evacuation presenting with 24 hours of cough and generalized malaise. He reports spending time in the garage yesterday and that there was alot of dust.He developed a cough that has been progressively worsening over the past day that is productive of which sputum without blood. He also reports pleuritic chest pain, He started becoming concerned because he also experienced chest tightness requiring deep inspirations. He also reprots chills, generalized weakness and malaise, nausea, LH, sinus congestion. He denies SOB, recent travel, known sick contacts, emesis, abd pain, trauma, rhinorrhea, sore throat. PMHx: as noted above ROS: as noted SHx: Denies tobacco use; no alcohol use; no rec drugs Allergies: NKDA ROS: GENERAL/CONSTITUTIONAL: +chills and generalized weakness. HEAD, EYES, EARS, NOSE AND THROAT: No change in vision. No ear pain or discharge. No sore throat. CARDIOVASCULAR: No chest pain or shortness of breath RESPIRATORY: +cough; wheezing, or hemoptysis. GASTROINTESTINAL: +nausea; no vomiting, diarrhea or constipation. GENITOURINARY: No dysuria, frequency, or change in urination. MUSCULOSKELETAL: No joint or muscle swelling or pain. No neck or back pain. SKIN: No rash NEUROLOGIC: No vertigo, loss of consciousness, or change in strength/sensation. ENDOCRINE: No increased thirst. No abnormal weight change HEMATOLOGIC/LYMPHATIC: No anemia, easy bleeding, or history of blood clots. ALLERGIC/IMMUNOLOGIC: No hives or skin allergy. PE: GENERAL: Awake, alert, and fully oriented, no acute distress HEAD: No signs of trauma, normocephalic, atraumatic EYES: EOMI, sclera anicteric, conjunctiva clear ENT: Auricles normal inspection, hearing grossly normal, nares patent, oropharynx clear without exudates. Moist mucosa NECK: Normal ROM, no lymphadenopathy LUNGS: No increased work of breathing, symmetrical chest rise, clear to auscultation bilaterally, no wheezes, crackles or rhonchi HEART: tachycardia and regular rhythm, normal S1 and S2, no murmurs, peripheral pulses 2+ and equal bilaterally. ABDOMEN: Soft, nondistended, nontender, normoactive bowel sounds. No guarding, no rebound. No masses. No CVAT MUSCULOSKELETAL: Normal inspection, FROM NEUROLOGICAL: Cranial nerves II through XII grossly intact. Normal speech, normal gait, no focal sensorimotor deficits SKIN: Warm, Dry, normal turgor, no rashes or lesions noted Past History - Past Medical History Allergies/Adverse Reactions: Allergies Allergy/AdvReac Type Severity Reaction Status Date / Time naproxen Allergy Verified 11/12/19 09:26 Home Medications: Ambulatory Orders Oseltamivir Phosphate [Tamiflu -] 75 mg PO BID #9 capsule 11/12/19 COPD: No Diabetes: Yes (boarderline) GI Disorders: Yes (acid reflux) - Surgical History Orthopedic Surgery: Yes (Left Knee meniscus repair) - Psycho Social/Smoking Cessation Hx Smoking Status: No Smoking History: Never smoked Have you smoked in the past 12 months: No Number of Cigarettes Smoked Daily: 0 Hx Alcohol Use: No Drug/Substance Use Hx: No *Physical Exam - Vital Signs Last Vital Signs Temp Pulse Resp BP Pulse Ox 102.1 F H 92 H 18 130/73 98 11/12/19 09:27 11/12/19 10:24 11/12/19 09:27 11/12/19 09:27 11/12/19 10:24 ED Treatment Course - LABORATORY CBC & Chemistry Diagram: 11/12/19 09:54 11/12/19 09:54 - ADDITIONAL ORDERS Additional order review: Laboratory Results 11/12/19 11/12/19 11/12/19 09:54 09:54 09:54 PT with INR INR PTT (Actin FS) VBG pH 7.33 POC VBG pCO2 57.8 H POC VBG pO2 < 49 H VBG HCO3 29.3 H VBG O2 Sat ([place]) 33.9 L VBG Base Excess 2.3 H Sodium Potassium Chloride Carbon Dioxide Anion Gap BUN Creatinine Est GFR (CKD-EPI)AfAm Est GFR (CKD-EPI)NonAf Random Glucose Lactic Acid 3.2 H* Calcium Total Bilirubin AST ALT Alkaline Phosphatase Creatine Kinase 65 Troponin I < 0.02 Total Protein Albumin 11/12/19 11/12/19 09:54 09:54 PT with INR 13.20 H INR 1.12 H PTT (Actin FS) 33.9 VBG pH POC VBG pCO2 POC VBG pO2 VBG HCO3 VBG O2 Sat ([place]) VBG Base Excess Sodium 142 Potassium 4.4 Chloride 104 Carbon Dioxide 28 Anion Gap 9 BUN 11.2 Creatinine 1.1 Est GFR (CKD-EPI)AfAm 82.37 Est GFR (CKD-EPI)NonAf 71.07 Random Glucose 171 H Lactic Acid Calcium 9.3 Total Bilirubin 1.6 H AST 27 ALT 39 Alkaline Phosphatase 76 Creatine Kinase Troponin I Total Protein 7.0 Albumin 3.7 11/12/19 09:54 RBC 4.89 MCV 89.0 MCHC 33.4 RDW 13.3 MPV 9.0 Neutrophils % 79.5 D Lymphocytes % 8.1 D Monocytes % 11.6 H Eosinophils % 0.1 D Basophils % 0.7 - RADIOLOGY Radiology Studies Ordered: Category Date Time Status CHEST PA & LAT [RAD] Stat Radiology 11/12/19 09:34 Completed - Medications Given in the ED: ED Medications Discontinued Medications Generic Name Dose Route Start Last Admin Trade Name Freq PRN Reason Stop Dose Admin Acetaminophen 1,000 mg 11/12/19 10:27 11/12/19 10:39 Ofirmev Injection - IVPB 11/12/19 10:28 1,000 mg ONCE ONE Administration Sodium Chloride 2,381 mls @ 1,190.5 mls/hr 11/12/19 09:33 11/12/19 10:05 Normal Saline - 30 ml/kg infuse over 2 hr (2381 ml) 11/12/19 11:32 Not Given IV ONCE ONE Sodium Chloride 1,000 mls @ 1,000 mls/hr 11/12/19 09:38 11/12/19 10:02 Normal Saline - IV 11/12/19 10:37 1,000 mls/hr ASDIR STA Administration Oseltamivir Phosphate 75 mg 11/12/19 10:32 11/12/19 10:39 Tamiflu - PO 11/12/19 10:33 75 mg ONCE ONE Administration Medical Decision Making - Medical Decision Making 11/12/19 17:59 64 y/o M with hx of pre-diabetes currently managed with diet and SDH s/p parietal craniotomy and evacuation presenting with 24 hours of cough and generalized malaise. T 102.1 and HR 100. PE unremarkable -sepsis order set, influenza -ofirmev 11/12/19 18:02 Rapid flu positive adminsiter tamiflu elevated lactate; will proceed with resuscitative fluids and repeat lactate 11/12/19 18:03 HR improved and patient afebrile discussed resutls tamiflu sent to pharmacy patient would like to go home and is comfortable with plan; will f/u with pcp Discharge - Discharge Information Problems reviewed: Yes Clinical Impression/Diagnosis: Influenza A Condition: Improved Disposition: HOME - Additional Discharge Information Prescriptions: Oseltamivir Phosphate [Tamiflu -] 75 mg PO BID #9 capsule - Follow up/Referral Referrals: Coty Suarez [Primary Care Provider] - - Patient Discharge Instructions Patient Printed Discharge Instructions: DI for Influenza -- Adult Additional Instructions: Additional Instructions: Please return to the emergency department with any new or worsening symptoms or concerns. Please follow up with your primary care physician within 72 hours. Please take tamiflu 75mg twice a day for 5 days; we have given your first dose in the ED. Please take tylenol 650mg every 6-8hours as needed for pain and fever. Please ensure adequate hydration - Post Discharge Activity Work/Back to School Note: Back to Work
--- NOTE | 2019-11-12 11:13 | PDOC ---
Documentation entered by Greg Barton SCRIBE, acting as scribe for Jorge Mcdermott MD. Jorge Mcdermott MD: This documentation has been prepared by the Mick wong Nirvannie, SCRIBE, under my direction and personally reviewed by me in its entirety. I confirm that the documentation accurately reflects all work, treatment, procedures, and medical decision making performed by me. Attending Attestation - Resident Resident Name: JasbirMattie - ED Attending Attestation I have performed the following: I have examined & evaluated the patient, The case was reviewed & discussed with the resident, I agree w/resident's findings & plan, Exceptions are as noted - HPI HPI: 11/12/19 10:41 The patient is a 64 year old male, with a significant past medical history of DM and subdural hematoma (11/2018 s/p, R parietal craniotomy for subdural hematoma, drain placement, microdissection) who presents to the emergency department with, 2 days of progressively worsening cold-like symptoms with associated midsternal chest tightness worsened when sitting upright. He describes his cold-like symptoms as a nonproductive cough and associated mild headache he attributes to post-tussive. As per patient, he was recently sick 3 weeks ago which resolved on its own and he is positive for sick contacts at work. Patient did not receive his flu shot. He denies any recent nausea, vomiting, diarrhea or constipation. He denies any recent dysuria, frequency, urgency or hematuria. Allergies: Naproxen Primary Care Physician: Dr. Suarez - Physicial Exam PE: 11/12/19 10:59 GENERAL: Awake, alert, and fully oriented, in no acute distress. Non toxic EYES: +corneal opacities b/l, PERRLA, EOMI, sclera anicteric, conjunctiva clear ENT: Nares patent, oropharynx clear without exudates. slightly dry MM NECK: Normal ROM, supple, no lymphadenopathy, JVD, or masses LUNGS: Breath sounds equal, clear to auscultation bilaterally. No wheezes, and no crackles HEART: Regular rate and rhythm, normal S1 and S2, no murmurs, rubs or gallops ABDOMEN: Soft, nontender, normoactive bowel sounds. No guarding, no rebound. No masses EXTREMITIES: Normal range of motion, no edema. No cords, erythema, or tenderness NEUROLOGICAL: Normal speech, cranial nerves intact, equal strength and sensation b/l SKIN: Warm, Dry, normal turgor, no rashes or lesions noted. - Medical Decision Making 64-year-old male with a history of diet-controlled diabetes and subdural hematoma status post evacuation presents emergency department with fever, chills , cough productive of white sputum, and chest tightness for 1 day. Vitals remarkable for fever to 102, borderline hypotension, mild tachycardia to 100. Exam with nontoxic-appearing patient with clear lungs Sepsis work-up including flu swab initiated. Patient is influenza A positive. Plan to treat with Tamiflu. Labs thus far remarkable for lactic of 3.2. Will give patient full 30 cc/kg bolus, repeat lactate, and reassess 11/12/19 14:24 Rpt lactic wnl pt well appearing will prescribe tamiflu He is clinically stable for DC home [facility] I discussed the physical exam findings, ancillary test results and final diagnoses with the patient. I answered all of the patient's questions. The patient was satisfied with the care received and felt comfortable with the discharge plan and treatment plan. The patient will call their primary care physician within 24 hours to arrange follow-up and will return to the Emergency Department with any new, persistent or worsening symptoms. Heart Score/ECG Review #1 11/12/19 11:12 Twelve-lead EKG was performed and reviewed by me. Normal sinus rhythm, rate 94. Normal axis and intervals. No ST elevations.
[2019-11-12 13:32] LABS: URINE APPEARANCE CLEAR; URINE BILIRUBIN NEGATIVE (NEGATIVE); URINE COLOR YELLOW; URINE GLUCOSE (UA) NEGATIVE (NEGATIVE); URINE KETONE NEGATIVE (NEGATIVE); URINE LEUK ESTERASE NEGATIVE (NEGATIVE); URINE NITRITE NEGATIVE (NEGATIVE); URINE PROTEIN NEGATIVE (NEGATIVE); URINE UROBILINOGEN 0.2 mg/dL (0.2-1.0)
[2019-11-12 14:54] VITALS: BP 104/92; PULSE 81; TEMP 99.1
== END 2019-11-12 14:52 | disposition home or self-care (01) ==
LOC: JER 08:40
PROC: 3E033NZ Introduction of Analgesics, Hypnotics, Sedatives into Peripheral Vein, Percutaneous Approach (ICD-10-PCS; principal; 2019-11-12)
PROC: 3E0337Z Introduction of Electrolytic and Water Balance Substance into Peripheral Vein, Percutaneous Approach (ICD-10-PCS; 2019-11-12)
DX: J09.X2 Influenza due to identified novel influenza A virus with other respiratory manifestations (principal); Z88.8 Allergy status to other drugs, medicaments and biological substances; R73.03 Prediabetes; S06.5X9A Traumatic subdural hemorrhage with loss of consciousness of unspecified duration, initial encounter
CPT/HCPCS: 36415; 71046-TC-FY; 80053; 81003; 82550; 82803; 83605; 84484; 85025; 85610; 85730; 87040; 87086; 87186; 87804; 93005; 93010; 99285-25; J0131; J7030

== ENCOUNTER 2021-05-26 13:37 | Emergency (ER) | payer BC ==
[2021-05-26 13:49] VITALS: BMI 25.1
[2021-05-26] MEDS ORDERED: ACETAMINOPHEN 1000 MG/100 ML VIAL (NON FORMULARY) IVPB ONE (15:03)
[2021-05-26] MEDS ORDERED: SODIUM CHLORIDE 0.9% 500 ML INFUS.BAG IV ONE (15:03)
[2021-05-26] MEDS ORDERED: METOCLOPRAMIDE HCL INJECTION 10 MG/2 ML VIAL IVPUSH ONE (15:03)
[2021-05-26] MEDS ORDERED: ACETAMINOPHEN INJECTION 100 ML IVPB ONE (15:05)
[2021-05-26] MEDS ORDERED: METOCLOPRAMIDE HCL 10 MG TABLET (FP) PO ONE (15:05)
[2021-05-26] MEDS ORDERED: METOCLOPRAMIDE HCL INJECTION 10 MG/2 ML VIAL ONE (15:06)
[2021-05-26 15:12] LABS: BASO % 1.4 % (0-2.0); HEMATOCRIT 42.7 % (35.4-49); HEMOGLOBIN 14.4 GM/dL (11.7-16.9); LYMPH % 59.3 % (8-40); MCH 29.5 pg (25.7-33.7); MCHC 33.6 g/dl (32.0-35.9); MEAN CELL VOLUME 87.6 fl (80-96); MEAN PLT VOLUME 9.1 fl (7.5-11.1); NEUT % 28.3 % (42.8-82.8); PLATELET COUNT 191 10^3/uL (134-434); RBC 4.88 M/mm3 (4.00-5.60); RDW 13.2 % (11.9-15.9); WHITE BLOOD COUNT 3.9 K/mm3 (4.0-10.0)
[2021-05-26 15:34] LABS: CHLORIDE 106 mmol/L (98-107); SODIUM 140 mmol/L (136-145)
[2021-05-26 15:36] LABS: CALCIUM 8.9 mg/dL (8.5-10.1)
[2021-05-26 15:37] LABS: ALBUMIN 3.8 g/dl (3.4-5.0); ANION GAP 5 MMOL/L (8-16); BLOOD UREA NITROGEN 10.9 mg/dL (7-18); CO2 30 mmol/L (21-32)
[2021-05-26 15:38] LABS: GLUCOSE,RANDOM 158 mg/dL (74-106)
[2021-05-26 15:40] LABS: CREATININE 0.8 mg/dL (0.55-1.3); SGOT/AST 17 U/L (15-37); SGPT/ALT 33 U/L (13-61)
[2021-05-26 15:42] LABS: BILIRUBIN,TOTAL 1.4 mg/dL (0.2-1); TOT PROT 6.5 g/dl (6.4-8.2)
[2021-05-26 15:43] LABS: ALK PHOS 74 U/L (45-117)
[2021-05-26 15:52] LABS: ERYTHROCYTE SEDIMENTATION RATE 6 mm/hr (0-20)
[2021-05-26 18:41] VITALS: BP 137/83; PULSE 89; TEMP 98.1
== END 2021-05-26 18:44 | disposition home or self-care (01) ==
LOC: JER 13:37
PROC: 3E0333Z Introduction of Anti-inflammatory into Peripheral Vein, Percutaneous Approach (ICD-10-PCS; principal; 2021-05-26)
PROC: 3E033GC Introduction of Other Therapeutic Substance into Peripheral Vein, Percutaneous Approach (ICD-10-PCS; 2021-05-26)
DX: R51.9 Headache, unspecified (principal)
CPT/HCPCS: 36415; 70450-TC; 70496-TC; 70498-TC; 80053; 85025; 85651; 86140; 99285-25; J0131; Q9967

== ENCOUNTER 2021-08-29 09:35 | Emergency (ER) | payer BC ==
[2021-08-29 09:43] VITALS: BP 150/52; PULSE 64; TEMP 98.3; BMI 25.1
== END 2021-08-29 11:22 | disposition home or self-care (01) ==
LOC: JER 09:35
DX: R05 Cough (principal)
CPT/HCPCS: 99283-25; C9803; U0003; U0005

== ENCOUNTER 2023-11-20 18:54 | Emergency (ER) | payer BC ==
[2023-11-20 19:18] VITALS: BMI 25.1
[2023-11-20 20:40] LABS: VENOUS BASE EXCESS 3.4 mmol/L (-2-2); VENOUS O2 SATURATION 24.3 % (70-80); VENOUS PCO2 49.3 mmHg (38-52); VENOUS PH 7.392 (7.310-7.410)
[2023-11-20] MEDS ORDERED: ACETAMINOPHEN 1000 MG/100 ML BAG IVPB ONE (20:40)
[2023-11-20] MEDS ORDERED: LACTATED RINGERS SOLUTION 1000 ML INFUS.BAG IV ONE (20:40)
[2023-11-20 20:41] LABS: BASO % 0.2 % (0-2.0); HEMATOCRIT 42.4 % (35.4-49); HEMOGLOBIN 14.1 GM/dL (11.7-16.9); LYMPH % 5.1 % (8-40); MCH 29.2 pg (25.7-33.7); MCHC 33.3 g/dl (32.0-35.9); MEAN CELL VOLUME 87.6 fl (80-96); MEAN PLT VOLUME 8.8 fl (7.5-11.1); MONO % 5.4 % (3.8-10.2); NEUT % 89.3 % (42.8-82.8); PLATELET COUNT 211 10^3/uL (134-434); RBC 4.84 M/mm3 (4.00-5.60); RDW 12.8 % (11.9-15.9); WHITE BLOOD COUNT 11.4 K/mm3 (4.0-10.0)
[2023-11-20 20:42] LABS: EPI CELLS 0 /uL (0-25.1); HYALINE CASTS 0 /uL (0-3.1); URINE APPEARANCE CLOUDY; URINE BACTERIA 323 /uL (0-1359); URINE BILIRUBIN NEGATIVE (NEGATIVE); URINE COLOR YELLOW; URINE GLUCOSE (UA) 3+ (NEGATIVE); URINE KETONE 1+ (NEGATIVE); URINE LEUK ESTERASE 2+ (NEGATIVE); URINE NITRITE NEGATIVE (NEGATIVE); URINE PROTEIN TRACE (NEGATIVE); URINE RBC 78 /uL (0-23.9); URINE UROBILINOGEN 0.2 mg/dL (0.2-1.0); URINE WBC 3882 /uL (0-25.8)
[2023-11-20] MEDS ORDERED: ACETAMINOPHEN INJECTION 100 ML IVPB ONE (20:44)
[2023-11-20 21:03] LABS: ACTIVATED PTT 32.8 SECONDS (25.2-36.5); INR 1.17 (0.83-1.09); PROTHROMBIN TIME (PATIENT) 13.5 SEC (9.7-13.0)
[2023-11-20] MEDS ORDERED: CEFTRIAXONE 1,000 MG in DEXTROSE 5%-WATER - 50 ML IVPB ONE (21:04)
[2023-11-20 21:49] LABS: CHLORIDE 101 mmol/L (98-107); POTASSIUM 3.7 mmol/L (3.5-5.1); SODIUM 134 mmol/L (136-145)
[2023-11-20 21:51] LABS: ALBUMIN 3.7 g/dl (3.4-5.0); ANION GAP 7 mmol/L (4-13); BLOOD UREA NITROGEN 9.9 mg/dL (7-18); CALCIUM 9.5 mg/dL (8.5-10.1); CO2 27 mmol/L (21-32); GLUCOSE,RANDOM 262 mg/dL (74-106)
[2023-11-20 21:54] LABS: SGPT/ALT 40 U/L (13-61)
[2023-11-20 21:55] LABS: SGOT/AST 21 U/L (15-37)
[2023-11-20 21:56] LABS: BILIRUBIN,TOTAL 1.4 mg/dL (0.2-1); TOT PROT 7.2 g/dl (6.4-8.2)
[2023-11-20 21:57] LABS: ALK PHOS 107 U/L (45-117)
[2023-11-20] MEDS ORDERED: CEFTRIAXONE 1 GM/50 ML BAG ONE (22:45)
[2023-11-20 23:06] VITALS: TEMP 98.3
[2023-11-20 23:28] VITALS: BP 122/68; PULSE 84; RESP 16
== END 2023-11-20 23:44 | disposition home or self-care (01) ==
LOC: JER 18:54
PROC: 3E03329 Introduction of Other Anti-infective into Peripheral Vein, Percutaneous Approach (ICD-10-PCS; principal; 2023-11-20)
PROC: 3E033NZ Introduction of Analgesics, Hypnotics, Sedatives into Peripheral Vein, Percutaneous Approach (ICD-10-PCS; 2023-11-20)
DX: N39.0 Urinary tract infection, site not specified (principal); R10.9 Unspecified abdominal pain; R30.0 Dysuria; N50.812 Left testicular pain; U07.1 COVID-19; R31.9 Hematuria, unspecified; M54.9 Dorsalgia, unspecified; R68.2 Dry mouth, unspecified; N45.1 Epididymitis
CPT/HCPCS: 0241U-QW; 36415; 71045-TC-FY; 74176-TC; 76870-TC; 80053; 81003; 82550; 82553; 82803; 83605; 84484; 85025; 85610; 85730; 86850; 86900; 86901; 87040; 87086; 87186; 93005; 93010; 99285-25